=== PATIENT | female | born 1960 | race Caucasian/White ===

== ENCOUNTER 2020-04-21 01:04 | Emergency (ER) | payer BC ==
[2020-04-21] MEDS: HYDROmorphone 1 MG/ML Syringe IVPUSH ONE ×2 (01:30→03:10)
[2020-04-21] MEDS: Sodium Chloride 0.9% 1,000 ML IV SCH (01:30)
[2020-04-21 02:03] LABS: CHLORIDE,CL 106 mmol/L (98-107); SODIUM,NA 142 mmol/L (136-145)
[2020-04-21 02:04] LABS: ANION GAP 9.7 mmol/L (10-20)
[2020-04-21 02:09] LABS: PTT,PARTIAL THROMBOPLSTIN TIME 24.5 SEC (25.6-32.8)
--- NOTE | 2020-04-21 02:14 | EDM.PDOC ---
ED HPI GENERAL MEDICAL PROBLEM - General Chief Complaint: General Stated Complaint: Neck pain, back, chest pain Time Seen by Provider: 04/21/20 01:11 Source of Information: Reports: Patient, EMS, RN History Limitations: Reports: No Limitations - History of Present Illness INITIAL COMMENTS - FREE TEXT/NARRATIVE: Pt. presents to ER with complaints of acute onset pain across shoulders, anterior neck, and lower anterior chest pain. She states that the symptoms woke her from sleep. She states that the discomfort was severe enough that it caused her to fall. She was unable to get up due to discomfort. EMS was summoned. Pt. denies any syncope but was lightheaded. She was alert for the entire event. Denies any shortness of breath. No vomiting, but complains of nausea. Pt. denies any fever or chills. No hemoptysis. No recent illnesses. She was hemodynamically stable prior to arrival in ER. Pt. states that the discomfort is worse with movement and deep breathing. Denies any previous episodes of similar symptoms in the past that she is aware of . Pt. has a history of smoking in the past, quit 2 months ago. Pt. denies any history of DVT, PE or other clotting disorders. She is unaware of any history of this in her family. Denies hemoptysis. 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 shoulder blade bilateral Pain Score (Numeric/FACES): 10 - Related Data Allergies Allergy/AdvReac Type Severity Reaction Status Date / Time No Known Allergies Allergy Verified 04/21/20 01:57 Home Meds: Home Meds Aspirin [Halfprin] 1 tab PO DAILY 02/04/14 [History] Levothyroxine 1 tab PO DAILY 02/04/14 [History] Multivitamin [Multi Vitamin Daily] 1 tab PO DAILY 02/04/14 [History] atorvaSTATin [Lipitor] 1 tab PO DAILY 02/04/14 [History] Calcium Carbonate/Vitamin D3 [Calcium 500 + Vit D 200 Tablet] 2 tab PO DAILY 03/16/14 [History] Pantoprazole Sodium [Protonix] 40 mg PO DAILY 04/21/20 [History] traZODone HCl [Trazodone HCl] 50 mg PO BEDTIME 04/21/20 [History] ED ROS GENERAL - Review of Systems Review Of Systems: See Below Constitutional: Reports: No Symptoms. Denies: Fever, Chills, Weakness, Fatigue HEENT: Reports: No Symptoms Respiratory: Reports: Pleuritic Chest Pain Cardiovascular: Reports: Chest Pain Endocrine: Reports: No Symptoms GI/Abdominal: Reports: No Symptoms : Reports: No Symptoms Musculoskeletal: Reports: No Symptoms Skin: Reports: No Symptoms Neurological: Reports: No Symptoms Psychiatric: Reports: No Symptoms Hematologic/Lymphatic: Reports: No Symptoms Immunologic: Reports: No Symptoms ED EXAM, GENERAL - Physical Exam Exam: See Below Exam Limited By: No Limitations General Appearance: Alert, WD/WN, No Apparent Distress Throat/Mouth: Normal Inspection, Normal Lips, Normal Teeth, Normal Oropharynx, No Airway Compromise Head: Atraumatic, Normocephalic Neck: Normal Inspection, Supple, Non-Tender, Full Range of Motion Respiratory/Chest: No Respiratory Distress, Lungs Clear, Normal Breath Sounds, No Accessory Muscle Use, Other (chest tender to palpation/with movement) Cardiovascular: Normal Peripheral Pulses, Regular Rate, Rhythm, No Edema, No JVD Peripheral Pulses: 4+: Radial (L) GI/Abdominal: Soft, Non-Tender, No Distention, No Mass (Female) Exam: Deferred Rectal (Female) Exam: Deferred Back Exam: Normal Inspection, Full Range of Motion Extremities: Normal Inspection, Normal Range of Motion, Non-Tender, No Pedal Edema, Normal Capillary Refill Neurological: Alert, Oriented, CN II-XII Intact, Normal Cognition, Normal Reflexes, No Motor/Sensory Deficits Psychiatric: Anxious Skin Exam: Warm, Dry, Intact, Normal Color Lymphatic: No Adenopathy Course - Vital Signs Last Recorded V/S: Last Vital Signs Temp 36.6 C 04/21/20 01:04 Pulse 65 04/21/20 03:02 Resp 16 04/21/20 03:02 BP 111/48 L 04/21/20 03:02 Pulse Ox 96 04/21/20 01:50 - Orders/Labs/Meds Orders: Active Orders 24 hr Category Date Time Status EKG Documentation Completion [RC] STAT Care 04/21/20 01:22 Active Chest PE [Ang Chest] [CT] Stat Exams 04/21/20 02:30 Ordered Sodium Chloride 0.9% [Normal Saline] 1,000 ml Med 04/21/20 01:30 Active IV ASDIRECTED Medication Orders Sodium Chloride (Normal Saline) 1,000 mls @ 1,000 mls/hr IV ASDIRECTED CHRISTIANO Last Admin: 04/21/20 01:30 Dose: 1,000 mls/hr Documented by: ANTHONY Labs: Laboratory Tests 04/21/20 04/21/20 04/21/20 Range/Units 01:30 01:30 01:30 WBC 5.7 (4.0-10.0) x10^3/uL RBC 3.80 L (4.00-5.50) x10^6/uL Hgb 12.7 (12.0-16.0) g/dL Hct 37.5 (33.0-47.0) % MCV 98.7 H (78.0-93.0) fL MCH 33.4 H (26.0-32.0) pg MCHC 33.9 (32.0-36.0) g/dL RDW Coeff of Cherry 13.0 (10.0-15.0) % Plt Count 179 (130-400) x10^3/uL Neut % (Auto) 66.0 (50.0-80.0) % Lymph % (Auto) 22.5 L (25.0-50.0) % [place] % (Auto) 7.2 (2.0-11.0) % Eos % (Auto) 3.8 (0.0-4.0) % Baso % (Auto) 0.5 (0.2-1.2) % PT 10.6 (9.5-12.3) SEC INR 1.0 L (2.0-3.5) APTT (25.6-32.8) SEC D-Dimer, Quantitative (<=0.58) mg/LFEU Sodium 142 (136-145) mmol/L Potassium 3.7 (3.5-5.1) mmol/L Chloride 106 (98-107) mmol/L Carbon Dioxide 30 (21-32) mmol/L Anion Gap 9.7 L (10-20) mmol/L BUN 17 (7-18) mg/dL Creatinine 0.9 (0.55-1.02) mg/dL Est Cr Clr Drug Dosing 70.98 mL/min Estimated GFR (MDRD) > 60 Glucose 104 (74-106) mg/dL Calcium 8.4 L (8.5-10.1) mg/dL Corrected Calcium 8.88 (8.5-10.1) mg/dL Magnesium 1.9 (1.8-2.4) mg/dL Total Bilirubin 0.8 (0.2-1.0) mg/dL AST 12 L (15-37) U/L ALT 22 (14-59) U/L Alkaline Phosphatase 66 (46-116) U/L Troponin I < 0.017 (<=0.056) ng/mL C-Reactive Protein 0.3 (<=0.9) mg/dL Total Protein 6.3 L (6.4-8.2) g/dL Albumin 3.4 (3.4-5.0) g/dL Globulin 2.9 Albumin/Globulin Ratio 1.17 Amylase 69 (25-115) U/L Lipase 152 (73-393) U/L 04/21/20 Range/Units 01:30 WBC (4.0-10.0) x10^3/uL RBC (4.00-5.50) x10^6/uL Hgb (12.0-16.0) g/dL Hct (33.0-47.0) % MCV (78.0-93.0) fL MCH (26.0-32.0) pg MCHC (32.0-36.0) g/dL RDW Coeff of Cherry (10.0-15.0) % Plt Count (130-400) x10^3/uL Neut % (Auto) (50.0-80.0) % Lymph % (Auto) (25.0-50.0) % [place] % (Auto) (2.0-11.0) % Eos % (Auto) (0.0-4.0) % Baso % (Auto) (0.2-1.2) % PT (9.5-12.3) SEC INR (2.0-3.5) APTT 24.5 L (25.6-32.8) SEC D-Dimer, Quantitative 33.27 H (<=0.58) mg/LFEU Sodium (136-145) mmol/L Potassium (3.5-5.1) mmol/L Chloride (98-107) mmol/L Carbon Dioxide (21-32) mmol/L Anion Gap (10-20) mmol/L BUN (7-18) mg/dL Creatinine (0.55-1.02) mg/dL Est Cr Clr Drug Dosing mL/min Estimated GFR (MDRD) Glucose (74-106) mg/dL Calcium (8.5-10.1) mg/dL Corrected Calcium (8.5-10.1) mg/dL Magnesium (1.8-2.4) mg/dL Total Bilirubin (0.2-1.0) mg/dL AST (15-37) U/L ALT (14-59) U/L Alkaline Phosphatase (46-116) U/L Troponin I (<=0.056) ng/mL C-Reactive Protein (<=0.9) mg/dL Total Protein (6.4-8.2) g/dL Albumin (3.4-5.0) g/dL Globulin Albumin/Globulin Ratio Amylase (25-115) U/L Lipase (73-393) U/L Meds: Medications Generic Name Dose Route Start Last Admin Trade Name Freq PRN Reason Stop Dose Admin Sodium Chloride 1,000 mls @ 1,000 mls/hr 04/21/20 01:30 04/21/20 01:30 Normal Saline IV 1,000 mls/hr ASDIRECTED CHRISTIANO Administration Discontinued Medications Generic Name Dose Route Start Last Admin Trade Name Freq PRN Reason Stop Dose Admin Diazepam 2.5 mg 04/21/20 01:40 04/21/20 01:44 Valium IVPUSH 04/21/20 01:41 2.5 mg STAT ONE Administration Hydromorphone HCl 1 mg 04/21/20 01:23 04/21/20 01:30 Dilaudid IVPUSH 04/21/20 01:24 1 mg ONETIME ONE Administration Hydromorphone HCl 1 mg 04/21/20 03:03 04/21/20 03:10 Dilaudid IVPUSH 04/21/20 03:04 1 mg ONETIME ONE Administration Iopamidol 100 ml 04/21/20 03:17 04/21/20 03:18 Isovue-300 (61%) IVPUSH 04/21/20 03:18 100 ml ONETIME ONE Administration Metoclopramide HCl 5 mg 04/21/20 02:21 04/21/20 02:25 Reglan IVPUSH 04/21/20 02:22 5 mg ONETIME ONE Administration - Radiology Interpretation Free Text/Narrative:: Thoracic/abdominal aortic aneurysm. Please see attached report. Departure - Departure Time of Disposition: 03:58 Disposition: Home, Self-Care 01 Clinical Impression: Thoracic aortic aneurysm - Discharge Information Referrals: PCP,Unobtain [Primary Care Provider] - Forms: ED Department Discharge, Interfacility Transfer EMTALA Sepsis Event Note (ED) - Evaluation Sepsis Screening Result: No Definite Risk - Focused Exam Vital Signs: Vital Signs Temp Pulse Resp BP Pulse Ox 04/21/20 03:02 65 16 111/48 L 04/21/20 01:50 64 16 106/49 L 96 04/21/20 01:04 36.6 C 62 16 116/49 L 100 - Problem List Review Problem List Initiated/Reviewed/Updated: Yes - My Orders Last 24 Hours: My Active Orders 04/21/20 01:22 EKG Documentation Completion [RC] STAT 04/21/20 01:30 Sodium Chloride 0.9% [Normal Saline] 1,000 ml IV ASDIRECTED 04/21/20 02:30 Chest PE [Ang Chest] [CT] Stat - Assessment/Plan Last 24 Hours: My Active Orders 04/21/20 01:22 EKG Documentation Completion [RC] STAT 04/21/20 01:30 Sodium Chloride 0.9% [Normal Saline] 1,000 ml IV ASDIRECTED 04/21/20 02:30 Chest PE [Ang Chest] [CT] Stat Plan: Pt. will be transported via [facility] ground ambulance to [facility]. Dr. Avila is accepting. Pt. is a code 1.
[2020-04-21] MEDS: Metoclopramide 10 MG/2 ML SDV IVPUSH ONE (02:25)
[2020-04-21] MEDS: Iopamidol 612 MG/ML 100 ML Bottle IVPUSH ONE (03:18)
--- NOTE | 2020-04-24 08:04 | CT ---
[id number] CT/CTA Chest EXAM: CT ANGIOGRAM CHEST INDICATION: ELEVATED D DIMER; CHEST PAIN COMPARISON: None. DISCUSSION: There is a large type A intramural hematoma or thrombosed dissection beginning at the aortic valve and abutting both coronary artery origins, extending into the right brachiocephalic and carotid arteries and the celiac axis. This process extends past the level of the renal arteries, but is included in the [id number] of this study. The SMA and renal arteries cross the process, but are not definitely involved. Negative for pulmonary embolism. Mild bilateral dependent groundglass opacities, favor atelectasis over atypical infection or inflammatory process. Indeterminate 9 x 4 mm nodular opacity in the right lower lobe (image 110 series 4). A 6 month follow-up examination is suggested. No pleural or pericardial effusion. Normal heart size. No mediastinal, hilar or axillary lymphadenopathy. Moderate to large hiatus hernia. Small left adrenal nodule. IMPRESSION: 1. Type A intramural hematoma versus thrombosed dissection of the aorta beginning at the aortic valve and extending past the level of the renal arteries with the distal extent excluded from the [id number] of this study. The process extends into the right brachiocephalic and carotid arteries. 2. Mild nonspecific groundglass opacities in the lower lobes, atelectasis versus atypical infection/inflammation. Timothy Rodrigues MD 04/24/20 0804 Thank you for allowing us to participate in the care of your patient.
== END 2020-04-21 04:05 | disposition home or self-care (01) ==
LOC: VM.ED 01:04
DX: I71.2 Thoracic aortic aneurysm, without rupture (principal); Z79.82 Long term (current) use of aspirin; Z79.899 Other long term (current) drug therapy
CPT/HCPCS: 36415; 71275; 80053; 82150; 83690; 83735; 84484; 85025; 85379; 85610; 85730; 86140; 93005; 96374; 96375; 96376; 99285; J1170; J2765; J3360; J7030; Q9967; 99284

== ENCOUNTER 2020-04-29 19:24 | Emergency (ER) | payer BC ==
[2020-04-29] MEDS ORDERED: Sodium Chloride 0.9% 10 ML Syringe FLUSH PRN (19:42)
[2020-04-29] MEDS ORDERED: HYDROmorphone 1 MG/ML Syringe IVPUSH ONE ×2 (19:44→21:40)
--- NOTE | 2020-04-29 19:55 | EDM.PDOC ---
ED HPI GENERAL MEDICAL PROBLEM - General Time Seen by Provider: 04/29/20 19:35 Source of Information: Reports: Patient History Limitations: Reports: No Limitations - History of Present Illness INITIAL COMMENTS - FREE TEXT/NARRATIVE: This patient presents to ER with complaints of abdominal pain since Friday. She underwent repair of type A aortic dissection with cardiopulmonary bypass with circulatory arrest. She was initially diagnosed here and transferred to [facility] for emergent surgery. Pt. states that she got out of the hospital this past Friday. She states that she has been having pain since time of discharge. States that she has been passing gas. She is prescribed [place] 5/325mg 1 every 6 hours which she states does not help. She states that she has been intermittently chilled. She feels weak and fatigued. She states that she has not been in contact with her surgeon since she was discharged. She feels she was not ready to be discharged. Denies any bloody stools. She states that she has been intermittently diaphoretic since before she was discharged. Onset: Today Onset Date: 04/29/20 Location: Reports: Abdomen upper abdomen Pain Score (Numeric/FACES): 6 - Related Data Allergies Allergy/AdvReac Type Severity Reaction Status Date / Time No Known Allergies Allergy Verified 04/29/20 19:54 Home Meds: Home Meds Aspirin [Halfprin] 1 tab PO DAILY 02/04/14 [History] Levothyroxine 137 mcg PO DAILY 02/04/14 [History] Multivitamin [Multi Vitamin Daily] 1 tab PO DAILY 02/04/14 [History] atorvaSTATin [Lipitor] 20 mg PO DAILY 02/04/14 [History] Calcium Carbonate/Vitamin D3 [Calcium 500 + Vit D 200 Tablet] 2 tab PO DAILY 03/16/14 [History] Pantoprazole Sodium [Protonix] 40 mg PO DAILY 04/21/20 [History] traZODone HCl [Trazodone HCl] 50 mg PO BEDTIME 04/21/20 [History] Cyclobenzaprine [Flexeril] 5 mg PO TID PRN 04/30/20 [History] Hydrocodone/Acetaminophen [Hydrocodone-Acetamin 5-325 mg] 1 tab PO Q6H PRN 04/30/20 [History] Metoprolol Tartrate 25 mg PO DAILY 04/30/20 [History] lisinopriL [Lisinopril] 5 mg PO DAILY 04/30/20 [History] Past Medical History HEENT History: Reports: Hard of Hearing Cardiovascular History: Reports: High Cholesterol Gastrointestinal History: Reports: GERD 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: Neurological History: Reports: Other (See Below) Other Neuro History: Insomnia Endocrine/Metabolic History: Reports: Hypothyroidism - Past Surgical History Female Surgical History: Reports: Section, Hysterectomy ED ROS GENERAL - Review of Systems Review Of Systems: See Below Constitutional: Reports: No Symptoms HEENT: Reports: No Symptoms Respiratory: Reports: No Symptoms Cardiovascular: Reports: No Symptoms Endocrine: Reports: No Symptoms GI/Abdominal: Reports: Abdominal Pain : Reports: No Symptoms Musculoskeletal: Reports: No Symptoms Skin: Reports: No Symptoms Neurological: Reports: No Symptoms Psychiatric: Reports: No Symptoms Hematologic/Lymphatic: Reports: No Symptoms Immunologic: Reports: No Symptoms ED EXAM, GENERAL - Physical Exam Exam: See Below Exam Limited By: No Limitations General Appearance: Alert, WD/WN, No Apparent Distress Throat/Mouth: Normal Inspection, Normal Lips, Normal Teeth, Normal Gums, Normal Oropharynx, No Airway Compromise Head: Atraumatic, Normocephalic Neck: Normal Inspection, Supple, Non-Tender, Full Range of Motion Respiratory/Chest: No Respiratory Distress, Lungs Clear, Normal Breath Sounds, No Accessory Muscle Use, Other (anterior chest pain along incision) Cardiovascular: Normal Peripheral Pulses, Regular Rate, Rhythm, No Edema, No Gallop, No JVD Peripheral Pulses: 4+: Radial (R), Posterior Tibial (L), Posterior Tibial (R), Dorsalis Pedis (L), Dorsalis Pedis (R) GI/Abdominal: Soft, Non-Tender, No Distention, No Mass (Female) Exam: Deferred Rectal (Female) Exam: Deferred Back Exam: Normal Inspection, Full Range of Motion Extremities: Normal Inspection, Normal Range of Motion, Non-Tender, No Pedal Edema, Normal Capillary Refill Neurological: Alert, Oriented, CN II-XII Intact, Normal Cognition, Normal Gait, Normal Reflexes, No Motor/Sensory Deficits Psychiatric: Normal Affect, Normal Mood Skin Exam: Warm, Dry, Intact, No Rash, Pallor Lymphatic: No Adenopathy Course - Vital Signs Last Recorded V/S: Last Vital Signs Temp 36.2 C 04/29/20 19:24 Pulse 98 04/29/20 20:45 Resp 16 04/29/20 20:45 BP 119/72 04/29/20 20:45 Pulse Ox 97 04/29/20 20:45 - Orders/Labs/Meds Orders: Active Orders 24 hr Category Date Time Status Peripheral IV Insertion Adult [OM.PC] Routine Oth 04/29/20 19:42 Ordered Labs: Laboratory Tests 04/29/20 04/29/20 04/29/20 Range/Units 19:50 19:50 19:50 WBC 14.2 H (4.0-10.0) x10^3/uL RBC 3.40 L (4.00-5.50) x10^6/uL Hgb 10.6 L D (12.0-16.0) g/dL Hct 31.2 L (33.0-47.0) % MCV 91.8 D (78.0-93.0) fL MCH 31.2 (26.0-32.0) pg MCHC 34.0 (32.0-36.0) g/dL RDW Coeff of Cherry 14.5 (10.0-15.0) % Plt Count 500 H D (130-400) x10^3/uL Neut % (Auto) 82.2 H (50.0-80.0) % Lymph % (Auto) 7.9 L (25.0-50.0) % [place] % (Auto) 8.1 (2.0-11.0) % Eos % (Auto) 1.4 (0.0-4.0) % Baso % (Auto) 0.4 (0.2-1.2) % PT 11.0 (9.5-12.3) SEC INR 1.0 L (2.0-3.5) APTT 26.6 (25.6-32.8) SEC Sodium 132 L D (136-145) mmol/L Potassium 3.5 (3.5-5.1) mmol/L Chloride 95 L (98-107) mmol/L Carbon Dioxide 23 (21-32) mmol/L Anion Gap 17.5 (10-20) mmol/L BUN 10 (7-18) mg/dL Creatinine 0.6 (0.55-1.02) mg/dL Est Cr Clr Drug Dosing TNP Estimated GFR (MDRD) > 60 Glucose 131 H (74-106) mg/dL Calcium 9.1 (8.5-10.1) mg/dL Corrected Calcium 10.14 H (8.5-10.1) mg/dL Magnesium 1.7 L (1.8-2.4) mg/dL Total Bilirubin 1.6 H (0.2-1.0) mg/dL AST 113 H (15-37) U/L ALT 76 H (14-59) U/L Alkaline Phosphatase 362 H (46-116) U/L Troponin I 0.021 (<=0.056) ng/mL C-Reactive Protein 55.9 H (<=0.9) mg/dL Total Protein 7.1 (6.4-8.2) g/dL Albumin 2.7 L (3.4-5.0) g/dL Globulin 4.4 Albumin/Globulin Ratio 0.61 Amylase 41 (25-115) U/L Lipase 111 (73-393) U/L Urine Color (YELLOW) Urine Appearance (CLEAR) Urine pH (5.0-8.0) Ur Specific [place] Urine Protein (NEGATIVE) mg/dL Urine Glucose (UA) (NEGATIVE) mg/dL Urine Ketones (NEGATIVE) mg/dL Urine Occult Blood (NEGATIVE) Urine Nitrite (NEGATIVE) Urine Bilirubin (NEGATIVE) Urine Urobilinogen (0.2) EU/dL Ur Leukocyte Esterase (NEGATIVE) Urine RBC (NOT SEEN) /HPF Urine WBC (NOT SEEN) /HPF Ur Squamous Epith Cells (NEGATIVE) /HPF Amorphous Sediment Urine Bacteria (NEGATIVE) /HPF Urine Mucus (NEGATIVE) /LPF 04/29/20 Range/Units 20:35 WBC (4.0-10.0) x10^3/uL RBC (4.00-5.50) x10^6/uL Hgb (12.0-16.0) g/dL Hct (33.0-47.0) % MCV (78.0-93.0) fL MCH (26.0-32.0) pg MCHC (32.0-36.0) g/dL RDW Coeff of Cherry (10.0-15.0) % Plt Count (130-400) x10^3/uL Neut % (Auto) (50.0-80.0) % Lymph % (Auto) (25.0-50.0) % [place] % (Auto) (2.0-11.0) % Eos % (Auto) (0.0-4.0) % Baso % (Auto) (0.2-1.2) % PT (9.5-12.3) SEC INR (2.0-3.5) APTT (25.6-32.8) SEC Sodium (136-145) mmol/L Potassium (3.5-5.1) mmol/L Chloride (98-107) mmol/L Carbon Dioxide (21-32) mmol/L Anion Gap (10-20) mmol/L BUN (7-18) mg/dL Creatinine (0.55-1.02) mg/dL Est Cr Clr Drug Dosing Estimated GFR (MDRD) Glucose (74-106) mg/dL Calcium (8.5-10.1) mg/dL Corrected Calcium (8.5-10.1) mg/dL Magnesium (1.8-2.4) mg/dL Total Bilirubin (0.2-1.0) mg/dL AST (15-37) U/L ALT (14-59) U/L Alkaline Phosphatase (46-116) U/L Troponin I (<=0.056) ng/mL C-Reactive Protein (<=0.9) mg/dL Total Protein (6.4-8.2) g/dL Albumin (3.4-5.0) g/dL Globulin Albumin/Globulin Ratio Amylase (25-115) U/L Lipase (73-393) U/L Urine Color [place] H (YELLOW) Urine Appearance Slightly cloudy H (CLEAR) Urine pH 8.5 H (5.0-8.0) Ur Specific [place] 1.015 Urine Protein Trace H (NEGATIVE) mg/dL Urine Glucose (UA) Negative (NEGATIVE) mg/dL Urine Ketones 15 H (NEGATIVE) mg/dL Urine Occult Blood Small H (NEGATIVE) Urine Nitrite Negative (NEGATIVE) Urine Bilirubin Moderate H (NEGATIVE) Urine Urobilinogen 2.0 H (0.2) EU/dL Ur Leukocyte Esterase Negative (NEGATIVE) Urine RBC 5-10 H (NOT SEEN) /HPF Urine WBC 0-5 (NOT SEEN) /HPF Ur Squamous Epith Cells Rare (NEGATIVE) /HPF Amorphous Sediment Few Urine Bacteria Rare (NEGATIVE) /HPF Urine Mucus Rare H (NEGATIVE) /LPF Meds: Medications Discontinued Medications Generic Name Dose Route Start Last Admin Trade Name Kaitlin PRN Reason Stop Dose Admin Hydrocodone Bitart/Acetaminophen 1 packet 04/29/20 21:40 Take Home: Acetam/Hydrocodon 325-5 Mg, 5 Pack PO 04/29/20 21:41 ONETIME ONE Hydromorphone HCl 1 mg 04/29/20 19:44 04/29/20 19:52 Dilaudid IVPUSH 04/29/20 19:45 1 mg ONETIME ONE Administration Hydromorphone HCl 1 mg 04/29/20 21:40 04/29/20 21:45 Dilaudid IVPUSH 04/29/20 21:41 1 mg ONETIME ONE Administration Iopamidol 100 ml 04/29/20 19:59 04/29/20 20:49 Isovue-300 (61%) IVPUSH 04/29/20 20:00 100 ml ONETIME ONE Administration Sodium Chloride 10 ml 04/29/20 19:42 Saline Flush FLUSH ASDIRECTED PRN Keep Vein Open - Radiology Interpretation Free Text/Narrative:: Please see attached report. Departure - Departure Time of Disposition: 22:10 Disposition: Home, Self-Care 01 Clinical Impression: Postoperative abdominal pain - Discharge Information Instructions: Abdominal Aortic Aneurysm, [id number] Referrals: Kalpana Boo PA-C [Primary Care Provider] - Forms: ED Department Discharge Additional Instructions: I spoke with Dr. Gonzalez, the surgeon application support manager at [facility]. She does not feel the the cause of the discomfort is due to your aorta. Your gallbladder in enlarged, and at some point after you have recovered from this illness will need to be addressed. We are going to increase your oxycodone dose. For now, take 2 5/325mg tablets every 4 hours as needed for pain I am sending home a script for percocet 10/325mg mg with instructions to take 1 every 4 hours as needed for pain. Start miralax 17gm (1 capful) of powder with a large glass or water each day. If you are having continued discomfort, fever, chills, nausea, vomiting, etc. return to ER or go to the ER at [facility]. Follow-up in clinic on Friday. - Problem List Review Problem List Initiated/Reviewed/Updated: Yes - My Orders Last 24 Hours: My Active Orders 04/29/20 19:42 Peripheral IV Insertion Adult [OM.PC] Routine - Assessment/Plan Last 24 Hours: My Active Orders 04/29/20 19:42 Peripheral IV Insertion Adult [OM.PC] Routine Plan: Discussed findings with thoracic surgery at [facility], Dr. Gonzalez. She felt that the pain was not due new aneurysm. Pt. was noted to have enlarged gallbladder without evidence of cholangitis. There was not obvious evidence of mesenteric infact on CT. No evidence of bowel obstruction, ruptured viscus. Likely cause of discomfort was due to inadequate post of pain control, as she has been having this discomfort since she was discharge last Friday. Advised watchful waiting at this time. She was given IV dilaudid in ER which she states helped with pain. Pt. oxycodone was increased to 10mg every 4 hours. Also advised starting miralax, as these medications are constipating. Return to ER if having worsening discomfort, fever, chills, or lightheadedness. Drink plenty of fluids.
[2020-04-29] MEDS ORDERED: Iopamidol 612 MG/ML 100 ML Bottle IVPUSH ONE (19:59)
[2020-04-29 20:12] LABS: PTT,PARTIAL THROMBOPLSTIN TIME 26.6 SEC (25.6-32.8)
[2020-04-29 20:20] LABS: CHLORIDE,CL 95 mmol/L (98-107); SODIUM,NA 132 mmol/L (136-145)
[2020-04-29 20:21] LABS: ANION GAP 17.5 mmol/L (10-20)
[2020-04-29] MEDS ORDERED: Take Home: Acetaminophen/HYDROcodone 325-5 MG, 5 Tab Pack PO ONE (21:40)
--- NOTE | 2020-04-30 08:51 | CT ---
[id number] CT/CT Chest Abdomen Pelvis W IV EXAM: CT Chest Abdomen Pelvis W IV CLINICAL DATA: CHEST/ABD PAIN, RECENT THORACIC ABD ANEURYSM COMPARISON STUDY: April 21, 2020. FINDINGS: Repair of previously seen thoracic aortic dissection seen on examination from April 21, 2020. There are changes of median sternotomy and graft placement. Graft appears radiographically intact. Periaortic hematoma has increased in size. Increased fluid in the mediastinum as well. Findings are most likely sequela of recent repair. There is hyperdense material in the false lumen of the dissection extending from the ascending segment of the thoracic aorta into the arch and descending segment. Hyperdense material also extends into the false lumens of the bilateral carotid arteries. This hyperdense material is possibly retained contrast from prior examination. No definitive evidence of leakage at either anastomosis site. However this is possible. False lumen is larger than the true lumen in both carotid arteries. Small bilateral pleural effusions and atelectasis left greater than right. Hiatus hernia, similar to the prior examination as well. Abdomen and pelvis: Dissection extends into the thoracic aorta to near the aortic bifurcation. Sac does not appear to involve ostia of the major branch vessels of the aorta, including the renal arteries. No evidence of bowel or organ ischemia. No evidence of retroperitoneal hematoma. Bones and soft tissues: Median sternotomy since the prior examination. Small areas of AVN in both femoral heads. No subchondral collapse. Spondylosis. No acute findings. IMPRESSION: Changes of thoracic aorta dissection repair. Graft appears intact. Increased fluid within the mediastinum, including the para-aortic soft tissues and pericardial region. Findings are most consistent with sequela of recent surgery. Findings are described in detail above. Bong Yoder MD 04/30/20 0849 Thank you for allowing us to participate in the care of your patient.
== END 2020-04-29 22:10 | disposition home or self-care (01) ==
LOC: VM.ED 19:24
DX: G89.18 Other acute postprocedural pain (principal); R10.10 Upper abdominal pain, unspecified; E78.00 Pure hypercholesterolemia, unspecified; K21.9 Gastro-esophageal reflux disease without esophagitis; E03.9 Hypothyroidism, unspecified; Z79.899 Other long term (current) drug therapy
CPT/HCPCS: 71260; 74177; 80053; 81001; 82150; 83690; 83735; 84484; 85025; 85610; 85730; 86140; 93005; 96374; 96376; 99284; J1170; Q9967; 99283

== ENCOUNTER 2020-05-14 21:40 | Emergency (ER) | payer BC ==
[~2020-05-14 21:40] MED LIST: Sodium Chloride 0.9% 10 ML Syringe FLUSH PRN
[2020-05-14] MEDS: EPINEPHrine 1 MG/1 ML Amp ONE (21:52)
[2020-05-14] MEDS: EPINEPHrine 1 MG/ML SDV IM ONE (21:53)
[2020-05-14] MEDS: methylPREDNISolone Sodium Succinate 125 MG/2 ML SDV IV ONE (21:54)
[2020-05-14] MEDS: diphenhydrAMINE 50 MG/ML SDV IVPUSH ONE (21:54)
[2020-05-14] MEDS: Famotidine 20 MG Tab PO ONE (22:00)
[2020-05-14] MEDS: HYDROmorphone 1 MG/ML Syringe IVPUSH ONE (22:37)
[2020-05-14] MEDS: LORazepam 2 MG/ML SDV IVPUSH ONE (22:43)
--- NOTE | 2020-05-15 02:18 | EDM.PDOC ---
ED HPI GENERAL MEDICAL PROBLEM - General Stated Complaint: SWOLLEN TONGUE , AND THROAT Time Seen by Provider: 05/14/20 21:40 Source of Information: Reports: Patient, Family History Limitations: Reports: No Limitations - History of Present Illness INITIAL COMMENTS - FREE TEXT/NARRATIVE: Pt. presents to ER with complaints of swelling to the tongue. Pt. states that the symptoms started this evening and the sensation woke her from sleep. Denies any rashes. No sore throat, wheezing or chest tightness. Pt. 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 The aortic repair was an open procedure, and she has been having lots of problems with abdominal and back pain since the event. She was also seen in the ER on approx. 04/29 for continued abdominal pain, and had a repeat CT of the chest, abd. and pelvis which was negative to acute dissection. She had a HIDA scan and thus the gallbladder was removed. She has also had angiography of her R lower extremity due to the leg "giving out" and paresthesia thought to be caused by femoral catheterization during her TAA. Pt. denies consuming any new foods. 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 She denies any fever or chills. No substernal chest discomfort. Onset: Today Onset Date: 05/14/20 Location: Reports: Face, Other - Related Data Allergies Allergy/AdvReac Type Severity Reaction Status Date / Time No Known Allergies Allergy Verified 04/29/20 19:54 Home Meds: Home Meds Aspirin [Halfprin] 1 tab PO DAILY 02/04/14 [History] Levothyroxine 137 mcg PO DAILY 02/04/14 [History] Multivitamin [Multi Vitamin Daily] 1 tab PO DAILY 02/04/14 [History] atorvaSTATin [Lipitor] 20 mg PO DAILY 02/04/14 [History] Calcium Carbonate/Vitamin D3 [Calcium 500 + Vit D 200 Tablet] 2 tab PO DAILY 03/16/14 [History] Pantoprazole Sodium [Protonix] 40 mg PO DAILY 04/21/20 [History] traZODone HCl [Trazodone HCl] 50 mg PO BEDTIME 04/21/20 [History] Cyclobenzaprine [Flexeril] 5 mg PO TID PRN 04/30/20 [History] Hydrocodone/Acetaminophen [Hydrocodone-Acetamin 5-325 mg] 1 tab PO Q6H PRN 04/30/20 [History] Metoprolol Tartrate 25 mg PO DAILY 04/30/20 [History] lisinopriL [Lisinopril] 5 mg PO DAILY 04/30/20 [History] Past Medical History HEENT History: Reports: Hard of Hearing Cardiovascular History: Reports: High Cholesterol Gastrointestinal History: Reports: GERD [employer] History: Reports: Neurological History: Reports: Other (See Below) Other Neuro History: Insomnia Endocrine/Metabolic History: Reports: Hypothyroidism - Past Surgical History Female Surgical History: Reports: Section, Hysterectomy ED ROS GENERAL - Review of Systems Review Of Systems: See Below Constitutional: Reports: No Symptoms HEENT: Reports: Other (swelling to tongue) Respiratory: Reports: No Symptoms Cardiovascular: Reports: No Symptoms Endocrine: Reports: No Symptoms GI/Abdominal: Reports: No Symptoms : Reports: No Symptoms Musculoskeletal: Reports: No Symptoms Skin: Reports: No Symptoms Neurological: Reports: No Symptoms Psychiatric: Reports: No Symptoms Hematologic/Lymphatic: Reports: No Symptoms Immunologic: Reports: Other (see HPI) ED EXAM, GENERAL - Physical Exam Exam: See Below Exam Limited By: No Limitations General Appearance: Alert, WD/WN, No Apparent Distress Eye Exam: Bilateral Eye: EOMI, PERRL Throat/Mouth: Other (Edema to tip of tongue, L greater than R but edema is actually quite minimal. No swelling to the lips. No stridor. No edema to hypopharynx. ) Head: Atraumatic, Normocephalic Neck: Normal Inspection, Supple, Non-Tender, Full Range of Motion Respiratory/Chest: No Respiratory Distress, Lungs Clear, Normal Breath Sounds, No Accessory Muscle Use, Chest Non-Tender Cardiovascular: Normal Peripheral Pulses, Regular Rate, Rhythm, No Edema, No JVD, No Murmur Peripheral Pulses: 4+: Radial (L) GI/Abdominal: Soft, Non-Tender, No Distention, No Mass (Female) Exam: Deferred Rectal (Female) Exam: Deferred Back Exam: Normal Inspection, Full Range of Motion Extremities: Normal Inspection, Normal Range of Motion Neurological: Alert, Oriented, CN II-XII Intact, Normal Cognition, Normal Gait, Normal Reflexes, No Motor/Sensory Deficits Psychiatric: Normal Affect, Normal Mood Skin Exam: Warm, Dry, Intact, Normal Color, No Rash Lymphatic: No Adenopathy Course - Orders/Labs/Meds Orders: Active Orders 24 hr Category Date Time Status Sodium Chloride 0.9% [Saline Flush] Med 05/14/20 21:40 Active 10 ml FLUSH ASDIRECTED PRN Peripheral IV Insertion Adult [OM.PC] Routine Oth 05/14/20 21:41 Ordered Medication Orders Sodium Chloride (Saline Flush) 10 ml FLUSH ASDIRECTED PRN PRN Reason: Keep Vein Open Meds: Medications Generic Name Dose Route Start Last Admin Trade Name Freq PRN Reason Stop Dose Admin Sodium Chloride 10 ml 05/14/20 21:40 Saline Flush FLUSH ASDIRECTED PRN Keep Vein Open Discontinued Medications Generic Name Dose Route Start Last Admin Trade Name Freq PRN Reason Stop Dose Admin Diphenhydramine HCl 50 mg 05/14/20 21:41 05/14/20 21:54 Benadryl IVPUSH 05/14/20 21:42 50 mg ONETIME ONE Administration Epinephrine HCl 0.5 mg 05/14/20 21:40 05/14/20 21:53 Adrenalin IM 05/14/20 21:41 Not Given ONETIME ONE Epinephrine HCl Confirm 05/14/20 21:56 05/14/20 21:52 Adrenalin Administered 05/14/20 21:57 0.3 mg Dose Administration 1 mg .ROUTE .STK-MED ONE Famotidine 20 mg 05/14/20 21:41 05/14/20 22:00 Pepcid PO 05/14/20 21:42 20 mg ONETIME ONE Administration Hydromorphone HCl 1 mg 05/14/20 22:24 05/14/20 22:37 Dilaudid IVPUSH 05/14/20 22:25 1 mg ONETIME ONE Administration Lorazepam 1 mg 05/14/20 22:24 05/14/20 22:43 Ativan IVPUSH 05/14/20 22:25 Not Given STAT ONE Methylprednisolone Sodium Succinate 125 mg 05/14/20 21:41 05/14/20 21:54 Solu-Medrol IV 05/14/20 21:42 125 mg ONETIME ONE Administration - Re-Assessments/Exams Free Text/Narrative Re-Assessment/Exam: Pt. was given epinephrine 0.3mg IM, benadryl 50mg IV, and solu medrol 125mg IV. She was observed for a period of time and reported feeling much improved. Denied any increase in size to her tongue, in fact she thinks it may have improved somewhat. She was given dilaudid 1 mg IV for her chronic back discomfort (she had not taken her oral medication for several hours). Departure - Departure Time of Disposition: 23:00 Disposition: Home, Self-Care 01 Clinical Impression: Angioedema due to angiotensin converting enzyme inhibitor (SHAKEEL-I) - Discharge Information Instructions: Allergies, Adult, [id number] Referrals: Kalpana Boo PA-C [Primary Care Provider] - Additional Instructions: Stop the lisinopril. This is the likely culprit to your reaction. Contact your surgeon to see what medication they want to start you on for your blood pressure Prednisone 20mg 2 tabs daily for 6 days Benadryl (diphenhydramine over the counter) 50mg every 6 hours for itching, swelling It may take several days for the swelling to go down fully, but return to ER if the swelling is getting worse, if you have troubles breathing, etc. I am giving you a prescription for epi pen to take if you are having a severe reaction with trouble breathing and can't get to the ER. - My Orders Last 24 Hours: My Active Orders 05/14/20 21:40 Sodium Chloride 0.9% [Saline Flush] 10 ml FLUSH ASDIRECTED PRN 05/14/20 21:41 Peripheral IV Insertion Adult [OM.PC] Routine - Assessment/Plan Last 24 Hours: My Active Orders 05/14/20 21:40 Sodium Chloride 0.9% [Saline Flush] 10 ml FLUSH ASDIRECTED PRN 05/14/20 21:41 Peripheral IV Insertion Adult [OM.PC] Routine
== END 2020-05-14 23:38 | disposition home or self-care (01) ==
LOC: VM.ED 21:40
DX: T78.3XXA Angioneurotic edema, initial encounter (principal); T46.4X5A Adverse effect of angiotensin-converting-enzyme inhibitors, initial encounter; E78.00 Pure hypercholesterolemia, unspecified; K21.9 Gastro-esophageal reflux disease without esophagitis; E03.9 Hypothyroidism, unspecified; Z79.899 Other long term (current) drug therapy; Z79.82 Long term (current) use of aspirin
CPT/HCPCS: 96372; 96374; 96375; 99284; 99284-25; A9270-GY; J0171; J1170; J1200; J2930

== ENCOUNTER 2020-06-16 11:57 | Inpatient (IN) | payer BC ==
[2020-06-16] MEDS ORDERED: Labetalol 20 MG/4 ML Syringe IVPUSH ONE ×2 (12:22→13:04)
[2020-06-16 12:59] LABS: CHLORIDE,CL 99 mmol/L (98-107); SODIUM,NA 136 mmol/L (136-145)
[2020-06-16 13:00] LABS: ANION GAP 13.2 mmol/L (5-15)
[2020-06-16] MEDS ORDERED: LORazepam 1 MG Tab PO ONE (13:06)
--- NOTE | 2020-06-16 13:34 | CR ---
[id number] RAD/RAD Chest PA or AP 1V EXAM: SINGLE VIEW CHEST. INDICATION: HISTORY OF DISSECTION OF THORACIC AORTA COMPARISON: CORRELATION IS MADE WITH THE CAT SCAN OF APRIL 29, 2020 FINDINGS: Dilatation of the thoracic aorta is stable The lungs are clear Surgical changes are identified IMPRESSION: NO OBVIOUS NEW PLAIN FILM ABNORMALITY Kyle Real MD 06/16/20 [id number] Thank you for allowing us to participate in the care of your patient.
[2020-06-16] MEDS ORDERED: hydrALAZINE 20 MG/ML SDV IVPUSH ONE ×2 (13:37→14:57)
[2020-06-16] MEDS ORDERED: hydrALAZINE 10 MG Tab PO STA (13:58)
[2020-06-16] MEDS ORDERED: Acetaminophen 500 MG Tab PO ONE (14:39)
--- NOTE | 2020-06-16 14:42 | EDM.PDOC ---
ED HPI GENERAL MEDICAL PROBLEM - General Chief Complaint: Cardiovascular Problem Stated Complaint: HIGH BLOOD PRESSURE Time Seen by Provider: 06/16/20 12:00 Source of Information: Reports: Patient History Limitations: Reports: No Limitations - History of Present Illness INITIAL COMMENTS - FREE TEXT/NARRATIVE: This patient is sent to the emergency department today from the primary care clinic with concerns of hypertensive to see. This patient was seen in the clinic today to establish care with Dr. Sandoval for her long-term management of her hypertension as well as aortic dissection. This patient was found in April to have an ascending aortic dissection that she had repaired at [facility] in [place] by Dr. Avila. Over the past couple of weeks she has had increasing dosages of her metoprolol 200 mg twice a day as well as amlodipine to 10 mg a day and her blood pressure continues to go up at home. She was establishing care in the clinic today when she was noted to have a systolic blood pressure of approximately 210/120. They were quite concerned with this high blood pressure in the recent aortic dissection and she was sent to the emergency department. Cardiothoracic surgery has been contacted but we are waiting on a phone call back from them for any guidance. Upon arrival to the emergency department patient really does not complain of any new complaints. She does complain of some chronic generalized weakness that she has had since her surgery. She also relates that her legs sometimes "give out". She gives a very different story than her . She relates that she can barely ambulate around the house because she is so weak in her legs give out. Although her states that she is markedly improved with her strength. She is able to ambulate around the house up and down the steps which she was initially not able to do when she got home. She denies any headache visual acuity. No weakness dizziness lightheadedness. No paresthesias. No palpitations or syncope. No chest pain shortness of breath or difficulty breathing. No back pain jaw arm or neck pain. No abdominal pain nausea or vomiting. No hematuria dysuria or urinary freque ncy. No black or tarry stools. She relates that she has been taking her blood pressure medication as prescribed but continues to keep going up. She is unable to take lisinopril as she had angioedema following the initiation of lisinopril a couple of months ago. She denies any alcohol usage or smoking history. No COVID exposure no COVID symptoms. Bilateral Leg Pain Score (Numeric/FACES): 5 Headache Pain Score (Numeric/FACES): 2 - Related Data Allergies Allergy/AdvReac Type Severity Reaction Status Date / Time lisinopril Allergy Severe Facial Verified 06/16/20 15:34 Swelling Home Meds: Home Meds Aspirin [Halfprin] 81 mg PO DAILY 02/04/14 [History] Levothyroxine 137 mcg PO SUTUWEFRSA@0700 02/04/14 [History] Multivitamin [Multi Vitamin Daily] 1 tab PO DAILY 02/04/14 [History] atorvaSTATin [Lipitor] 20 mg PO DAILY 02/04/14 [History] Pantoprazole Sodium [Protonix] 40 mg PO DAILY 04/21/20 [History] traZODone HCl [Trazodone HCl] 50 - 100 mg PO BEDTIME 04/21/20 [History] Acetaminophen 1,000 mg PO Q6H 06/16/20 [History] Docusate Sodium/Sennosides [Senna Plus] 2 tab PO BID 06/16/20 [History] EPINEPHrine [Epipen] 0.3 mg IM ASDIRECTED PRN 06/16/20 [History] Levothyroxine Sodium [Synthroid] 125 mcg PO MOTH@0700 06/16/20 [History] Metoprolol Tartrate 100 mg PO BID 06/16/20 [History] Sucralfate 1 gm PO TID 06/16/20 [History] amLODIPine Besylate [Amlodipine Besylate] 10 mg PO DAILY 06/16/20 [History] oxyCODONE 10 mg PO Q6H PRN 06/16/20 [History] Past Medical History HEENT History: Reports: Hard of Hearing Cardiovascular History: Reports: High Cholesterol Gastrointestinal History: Reports: GERD SAP PP CONSULTANT History: Reports: Neurological History: Reports: Other (See Below) Other Neuro History: Insomnia Endocrine/Metabolic History: Reports: Hypothyroidism - Past Surgical History Female Surgical History: Reports: Section, Hysterectomy Social & Family History - Family History Family Medical History: Unobtainable - Caffeine Use Caffeine Use: Reports: None ED ROS GENERAL - Review of Systems Review Of Systems: Comprehensive ROS is negative, except as noted in HPI. ED EXAM, GENERAL - Physical Exam Exam: See Below Exam Limited By: No Limitations General Appearance: Alert, WD/WN, No Apparent Distress Eye Exam: Bilateral Eye: EOMI Ears: Normal External Exam Nose: Normal Inspection, Normal Mucosa Throat/Mouth: Normal Inspection, Normal Lips Head: Atraumatic, Normocephalic Neck: Normal Inspection, Supple, Non-Tender, Full Range of Motion. No: Carotid Bruit Respiratory/Chest: No Respiratory Distress, Lungs Clear, Normal Breath Sounds, No Accessory Muscle Use, Chest Non-Tender Cardiovascular: Normal Peripheral Pulses, Regular Rate, Rhythm, Systolic Murmur (2/5 best heard over the left anterior chest. She has a well-healed midsternal incision.) Peripheral Pulses: 3+: Radial (L), Radial (R), Femoral (L), Femoral (R) GI/Abdominal: Normal Bowel Sounds, Soft, Non-Tender, No Distention, No Abnormal Bruit, No Mass, Pelvis Stable (Female) Exam: Deferred Rectal (Female) Exam: Deferred Back Exam: Normal Inspection, Full Range of Motion Extremities: Normal Inspection, Normal Range of Motion, Non-Tender, No Pedal Edema, Normal Capillary Refill Neurological: Alert, Oriented, CN II-XII Intact, Normal Cognition, Normal Gait, No Motor/Sensory Deficits, Abnormal Reflexes Psychiatric: Normal Affect Skin Exam: Dry, Intact, Normal Color, No Rash, Cool Lymphatic: No Adenopathy #1 Interpretation EKG Date: 07/14/20 Time: 11:55 Rhythm: NSR Rate (Beats/Min): 81 [place]: Normal P-Wave: Present QRS: Normal ST-T: Normal QT: Normal Course - Vital Signs Last Recorded V/S: Last Vital Signs Temp 98.3 F 06/19/20 10:00 Pulse 84 06/19/20 10:00 Resp 15 06/19/20 10:00 BP 152/62 H 06/19/20 10:00 Pulse Ox 92 L 06/19/20 10:00 - Orders/Labs/Meds Labs: Laboratory Tests 06/16/20 06/16/20 06/16/20 Range/Units 12:20 12:20 12:20 WBC 10.4 H (4.0-10.0) x10^3/uL RBC 3.75 L (4.00-5.50) x10^6/uL Hgb 10.9 L (12.0-16.0) g/dL Hct 33.8 (33.0-47.0) % MCV 90.1 (78.0-93.0) fL MCH 29.1 (26.0-32.0) pg MCHC 32.2 (32.0-36.0) g/dL RDW Coeff of Cherry 14.9 (10.0-15.0) % Plt Count 437 H (130-400) x10^3/uL Neut % (Auto) 75.2 (50.0-80.0) % Lymph % (Auto) 15.9 L (25.0-50.0) % Lea % (Auto) 6.6 (2.0-11.0) % Eos % (Auto) 1.6 (0.0-4.0) % Baso % (Auto) 0.7 (0.2-1.2) % PT 11.9 (9.9-12.5) SEC INR 1.1 L (2.0-3.5) APTT 25.6 (25.6-32.8) SEC Sodium 136 (136-145) mmol/L Potassium 4.2 (3.5-5.1) mmol/L Chloride 99 (98-107) mmol/L Carbon Dioxide 28 (21-32) mmol/L Anion Gap 13.2 (5-15) mmol/L BUN 12 (7-18) mg/dL Creatinine 1.2 H (0.55-1.02) mg/dL Est Cr Clr Drug Dosing TNP Estimated GFR (MDRD) 46 Glucose 107 H (74-106) mg/dL Calcium 9.0 (8.5-10.1) mg/dL Corrected Calcium 9.88 (8.5-10.1) mg/dL Magnesium (1.8-2.4) mg/dL Total Bilirubin 0.5 (0.2-1.0) mg/dL AST 13 L (15-37) U/L ALT 15 (14-59) U/L Alkaline Phosphatase 109 (46-116) U/L Troponin I 0.017 (<=0.056) ng/mL Total Protein 7.7 (6.4-8.2) g/dL Albumin 2.9 L (3.4-5.0) g/dL Globulin 4.8 Albumin/Globulin Ratio 0.60 TSH, Ultra Sensitive 1.498 (0.358-3.74) uIU/mL Urine Color (YELLOW) Urine Appearance (CLEAR) Urine pH (5.0-8.0) Ur Specific [place] Urine Protein (NEGATIVE) mg/dL Urine Glucose (UA) (NEGATIVE) mg/dL Urine Ketones (NEGATIVE) mg/dL Urine Occult Blood (NEGATIVE) Urine Nitrite (NEGATIVE) Urine Bilirubin (NEGATIVE) Urine Urobilinogen (0.2) EU/dL Ur Leukocyte Esterase (NEGATIVE) Urine RBC (NOT SEEN) /HPF Urine WBC (NOT SEEN) /HPF Ur Squamous Epith Cells (NEGATIVE) /HPF Urine Bacteria (NEGATIVE) /HPF Urine Mucus (NEGATIVE) /LPF 06/16/20 06/16/20 Range/Units 12:20 14:30 WBC (4.0-10.0) x10^3/uL RBC (4.00-5.50) x10^6/uL Hgb (12.0-16.0) g/dL Hct (33.0-47.0) % MCV (78.0-93.0) fL MCH (26.0-32.0) pg MCHC (32.0-36.0) g/dL RDW Coeff of Cherry (10.0-15.0) % Plt Count (130-400) x10^3/uL Neut % (Auto) (50.0-80.0) % Lymph % (Auto) (25.0-50.0) % Lea % (Auto) (2.0-11.0) % Eos % (Auto) (0.0-4.0) % Baso % (Auto) (0.2-1.2) % PT (9.9-12.5) SEC INR (2.0-3.5) APTT (25.6-32.8) SEC Sodium (136-145) mmol/L Potassium (3.5-5.1) mmol/L Chloride (98-107) mmol/L Carbon Dioxide (21-32) mmol/L Anion Gap (5-15) mmol/L BUN (7-18) mg/dL Creatinine (0.55-1.02) mg/dL Est Cr Clr Drug Dosing Estimated GFR (MDRD) Glucose (74-106) mg/dL Calcium (8.5-10.1) mg/dL Corrected Calcium (8.5-10.1) mg/dL Magnesium 1.9 (1.8-2.4) mg/dL Total Bilirubin (0.2-1.0) mg/dL AST (15-37) U/L ALT (14-59) U/L Alkaline Phosphatase (46-116) U/L Troponin I (<=0.056) ng/mL Total Protein (6.4-8.2) g/dL Albumin (3.4-5.0) g/dL Globulin Albumin/Globulin Ratio TSH, Ultra Sensitive (0.358-3.74) uIU/mL Urine Color Light yellow (YELLOW) Urine Appearance Clear (CLEAR) Urine pH 7.0 (5.0-8.0) Ur Specific [place] 1.015 Urine Protein Negative (NEGATIVE) mg/dL Urine Glucose (UA) Negative (NEGATIVE) mg/dL Urine Ketones Negative (NEGATIVE) mg/dL Urine Occult Blood Trace-intact H (NEGATIVE) Urine Nitrite Negative (NEGATIVE) Urine Bilirubin Negative (NEGATIVE) Urine Urobilinogen 0.2 (0.2) EU/dL Ur Leukocyte Esterase Negative (NEGATIVE) Urine RBC 0-5 (NOT SEEN) /HPF Urine WBC 0-5 (NOT SEEN) /HPF Ur Squamous Epith Cells Few H (NEGATIVE) /HPF Urine Bacteria Not seen (NEGATIVE) /HPF Urine Mucus Not seen (NEGATIVE) /LPF Meds: Medications Discontinued Medications Generic Name Dose Route Start Last Admin Trade Name Freq PRN Reason Stop Dose Admin Acetaminophen 1,000 mg 06/16/20 14:39 06/16/20 14:43 Tylenol Extra Strength PO 06/16/20 14:40 1,000 mg ONETIME ONE Administration Acetaminophen 1,000 mg 06/16/20 21:00 06/19/20 09:21 Tylenol Extra Strength PO 1,000 mg Q6H CHRISTIANO Administration Amlodipine Besylate 10 mg 06/17/20 08:00 06/19/20 09:22 Norvasc PO 10 mg DAILY CHRISTIANO Administration Aspirin 81 mg 06/17/20 08:00 06/19/20 09:22 Halfprin PO 81 mg DAILY CHRISTIANO Administration Atorvastatin Calcium 20 mg 06/16/20 20:00 06/19/20 09:21 Lipitor PO 20 mg DAILY CHRISTIANO Administration Clonidine HCl 0.1 mg 06/18/20 20:00 06/19/20 09:20 Catapres PO 0.1 mg Q12HR CHRISTIANO Administration Cyclobenzaprine HCl 5 mg 06/16/20 17:18 06/19/20 09:21 Flexeril PO 5 mg TID PRN Administration Spasms Gabapentin 300 mg 06/17/20 12:00 06/19/20 09:21 Neurontin PO 300 mg TID CHRISTIANO Administration Hydralazine HCl 10 mg 06/16/20 13:37 06/16/20 13:40 Apresoline IVPUSH 06/16/20 13:38 10 mg ONETIME ONE Administration Hydralazine HCl 10 mg 06/16/20 13:58 06/16/20 14:00 Apresoline PO 06/16/20 13:59 10 mg NOW STA Administration Hydralazine HCl 10 mg 06/16/20 14:57 06/16/20 16:32 Apresoline IVPUSH 06/16/20 14:58 Not Given ONETIME ONE Hydralazine HCl 10 mg 06/18/20 10:45 06/19/20 02:01 Apresoline PO 10 mg Q8H CHRISTIANO Administration Hydromorphone HCl 0.5 mg 06/16/20 17:24 06/16/20 20:12 Dilaudid IV 0.5 mg Q2H PRN Administration Pain Nicardipine HCl 25 mg/ Sodium 250 mls @ 50 mls/hr 06/16/20 15:15 06/19/20 09:23 Chloride IV 12.5 mg/hr TITRATE CHRISTIANO 125 mls/hr Administration Protocol 5 MG/HR Influenza Virus Vaccine 60 mcg 06/17/20 19:10 06/18/20 08:05 Fluzone Quad Syringe IM 06/17/20 19:11 Not Given .ONCE ONE Iopamidol 100 ml 06/16/20 19:24 Isovue-300 (61%) IVPUSH 06/16/20 19:25 ONETIME ONE Iopamidol 100 ml 06/17/20 13:17 Isovue-300 (61%) IVPUSH 06/17/20 13:18 ONETIME ONE Labetalol HCl 20 mg 06/16/20 12:22 06/16/20 12:27 Normodyne IVPUSH 06/16/20 12:23 20 mg NOW ONE Administration Protocol Labetalol HCl 40 mg 06/16/20 13:04 06/16/20 13:10 Normodyne IVPUSH 06/16/20 13:05 40 mg NOW ONE Administration Protocol Levothyroxine Sodium 112 mcg 06/17/20 07:00 Levothyroxine PO ACBREAKFAST CHRISTIANO Levothyroxine Sodium 12.5 mcg 06/17/20 07:00 Levothyroxine PO ACBREAKFAST CHRISTIANO Levothyroxine Sodium 125 mcg 06/19/20 07:00 06/19/20 06:08 Levothyroxine PO 125 mcg MOTH@0700 CHRISTIANO Administration Levothyroxine Sodium 112 mcg 06/18/20 07:00 06/18/20 06:55 Levothyroxine PO 112 mcg SuTuWeFrSa@0700 CHRISTIANO Administration Levothyroxine Sodium 25 mcg 06/18/20 07:00 06/18/20 06:55 Levothyroxine PO 25 mcg [id number]@0700 CHRISTIANO Administration Lorazepam 1 mg 06/16/20 13:06 06/16/20 13:10 Ativan PO 06/16/20 13:07 1 mg ONETIME ONE Administration Metoprolol Tartrate 25 mg 06/17/20 08:00 Lopressor PO DAILY CHRISTIANO Metoprolol Tartrate 100 mg 06/17/20 08:00 06/19/20 09:22 Lopressor PO 100 mg BID CHRISTIANO Administration Oxycodone HCl 10 mg 06/16/20 17:23 06/17/20 07:19 Oxycodone PO 10 mg Q6H PRN Administration Pain Oxycodone HCl 10 mg 06/16/20 20:57 Oxycodone PO Q6H PRN Pain Oxycodone HCl 10 mg 06/17/20 10:12 06/19/20 09:18 Oxycodone PO 10 mg Q8H PRN Administration Pain Pantoprazole Sodium 40 mg 06/17/20 07:00 06/19/20 06:08 Protonix PO 40 mg ACBREAKFAST CHRISTIANO Administration Senna/Docusate Sodium 2 tab 06/17/20 08:00 06/19/20 09:18 Senna Plus PO 2 tab BID CHRISTIANO Administration Sodium Chloride 10 ml 06/16/20 12:20 06/17/20 16:11 Saline Flush FLUSH 10 ml ASDIRECTED PRN Administration Keep Vein Open Trazodone HCl 50 mg 06/16/20 20:00 06/18/20 20:17 Trazodone PO 50 mg BEDTIME CHRISTIANO Administration - Radiology Interpretation Free Text/Narrative:: X-ray per radiology shows no obvious new plain film abnormality. - Re-Assessments/Exams Free Text/Narrative Re-Assessment/Exam: Dr. Avila from Cardiothoracic surgery did return the phone call and as the patient is not symptomatic with her BP no need for further testing or workup just needs to get her BP under control. The patient initially was given 20 mg of labetalol without much improvement of her blood pressure. She was subsequently given 40 mg of labetalol with a minimal amount of improvement of her blood pressure. She was then given 10 mg of hydralazine which improved her blood pressure to about 160 systolically which is about where I would like it to reduce slowly over the next couple of hours. She was also given 10 mg of hydralazine orally to see if we can get this under control and keep it down. Laboratory evaluation shows a white blood cell count minimally elevated at 10.4, hemoglobin 10.9, platelet count normal. PT 11.9, INR 1.1, PTT 25.6. CMP is unremarkable other than mild elevation of her creatinine 1.2 with a BUN of 12, glucose of 107. Her troponin is 0.017. Her TSH is 1.498. Urinalysis negative for leukocytes nitrites. No protein or ketones. Trace of blood intact. Noninfectious appearing. She was monitored closely in the emergency department over the next couple of hours. Although her blood pressure continued to rise back up to the 180-200 systolically. She did develop a mild headache while in the emergency department and Tylenol improve this. She clearly needs closer management and inpatient stay as her blood pressure is quite high. Although she is not having any sympto ms with this it is quite concerning to control her impulse therapy with the recent repair of her ascending aortic dissection. She was started on nicardipine drip at 5 mg an hour. I called and spoke with Rufino [facility] ER COURSE findings and concerns were relayed to him. We discussed this patient at length and we will admit her here for further care management and direction from Cardiology and CV surgery in [place]. Our threshold for transfer if any changes is quite low. She is asymptomatic at this time. He accepted the patient in admission here in [place] for continued care. I discussed the findings and concerns of the hypertensive urgency with the patient as well as her . I relayed that we have been in contact with her cardiothoracic surgeon in [place] and that his recommendations are blood pressure management and no further work-up at this time. I plan to admit her into the hospital on a nicardipine drip with close observation she is in agreements with. She is understanding at any time if she feels worse or any change of the symptoms we will transfer her to a higher level of care. Her and her are comfortable with this plan and their questions were answered. Departure - Departure Time of Disposition: 15:15 Disposition: Admitted As Inpatient 65 Reason for Transfer *Q: Other Clinical Impression: Hypertensive urgency
[2020-06-16 15:05] LABS: PTT,PARTIAL THROMBOPLSTIN TIME 25.6 SEC (25.6-32.8)
[2020-06-16] MEDS: niCARdipine HCl 25 MG in Sodium Chloride 0.9% 240 ML IV SCH ×2 (15:37→21:05)
[2020-06-16] MEDS ORDERED: HYDROmorphone 0.5 MG/0.5 ML Syringe IV PRN (17:24)
[2020-06-16] MEDS: oxyCODONE 5 MG Tab PO PRN (18:03)
[2020-06-16] MEDS ORDERED: Iopamidol 612 MG/ML 100 ML Bottle IVPUSH ONE (19:24)
--- NOTE | 2020-06-16 20:05 | CT ---
[id number] CT/CT Head WO IV EXAM: NONCONTRAST HEAD CT INDICATION: H/A, NAUSEA, HYPERTENSIVE URGENCY COMPARISON: None. DISCUSSION: Previous bilateral craniotomies. There is mild generalized atrophy. The cruz and white matter are normal in attenuation. No mass effect or midline shift. No acute hemorrhage or extra-axial fluid collection. No acute territorial infarct is identified. Small bilateral maxillary sinus mucosal retention cysts. The orbits and paranasal sinuses are otherwise unremarkable. IMPRESSION: 1. No acute findings. Timothy Rodrigues MD 06/16/202003 Thank you for allowing us to participate in the care of your patient.
[2020-06-16] MEDS: traZODone 50 MG Tab PO SCH (20:09)
[2020-06-16] MEDS: Cyclobenzaprine 10 MG Tab PO PRN (20:09)
[2020-06-16] MEDS: atorvaSTATin 10 MG Tab PO SCH (20:09)
[2020-06-16] MEDS: Sodium Chloride 0.9% 10 ML Syringe FLUSH PRN (20:12)
[2020-06-16] MEDS ORDERED: oxyCODONE 5 MG Tab PO PRN (20:57)
--- NOTE | 2020-06-16 20:57 | CT ---
[id number] CT/CT Abdomen W IV EXAM: CT Abdomen W IV INDICATION: NAUSEA COMPARISON: April 29, 2020. FINDINGS: The side markers are reversed relative to the comparison study and appear to likely be incorrect. A small left pleural effusion and associated left base atelectasis have decreased. A descending thoracic aortic aneurysm dissection is only partially imaged on today's study, but the dissection flap appears to extend a shorter distance on today's study ending prior to the aortic hiatus with no significant extension into the abdominal aorta or its major branches. Prior cholecystectomy. A few scattered subcentimeter hepatic hypodensities are too small to further characterize, but are similar to the prior study. A moderate hiatus hernia is is unchanged. There are scattered diverticula of the colon. Mild apparent wall thickening of the proximal descending colon and segments of the rectosigmoid colon could be from mild colitis or incomplete distention. No CT evident complication. Prior hysterectomy. The pancreas, spleen, adrenal glands, kidneys, small bowel, and the appendix are normal in appearance. No adenopathy, free air free fluid. Degenerative changes are noted in the spine. IMPRESSION: 1. Mild apparent wall thickening in segments of the descending and rectosigmoid colon may relate to mild colitis or incomplete distention. 2. A small left pleural effusion has decreased. 3. Partially characterized dissection of the descending thoracic aorta with interval resolution of extension into the abdominal aorta. Timothy Rodrigues MD 06/16/202055 Thank you for allowing us to participate in the care of your patient.
[2020-06-16] MEDS: Acetaminophen 500 MG Tab PO SCH (22:15)
[2020-06-17] MEDS: oxyCODONE 5 MG Tab PO PRN ×4 (01:18→23:22)
[2020-06-17] MEDS: niCARdipine HCl 25 MG in Sodium Chloride 0.9% 240 ML IV SCH ×3 (02:24→20:57)
--- NOTE | 2020-06-17 03:04 | HP ---
CHIEF COMPLAINT: Uncontrolled blood pressure. HISTORY OF PRESENT ILLNESS: This 60-year-old female patient was seen in the emergency room earlier this evening for elevated blood pressure. The patient had been seen at the [facility] in [place] earlier today and her blood pressure was elevated in the 180s, therefore recommendation was made for further evaluation in the emergency room. INTERVAL HISTORY: The patient had been seen in the Emergency Room at [place] on 04/21/2020 and was found to have an aortic dissection. The patient was then transferred to [facility] for further evaluation and treatment. The patient did undergo AAA repair on the same day. The patient did well postoperatively and was able to be discharged home. The patient presented again to the emergency room on 05/01/2020 and was readmitted to [place] and underwent a laparoscopic cholecystectomy for pain. The patient was discharged on 05/03/2020 in stable condition. The patient presented to the [facility] in [place] on 05/05/2020 for uncontrolled pain and evaluation of possible incision infections. The patient was placed on topical antibiotic treatment and started on pain medication and sent home. The patient was seen at [facility] for a followup with the cardiothoracic surgeon on 05/18/2020. CT scan of her chest, abdomen, pelvis revealed the takeoff of the subclavian repair showed false impingement on the true vessel. Therefore, it was thought the patient's pain was related to this impingement. The patient was then referred to the [facility] for possible endo grafting of the descending aorta and repair of the takeoff of the subclavian vein. The patient was then seen again for elevated blood pressures in the [place] [facility] on 06/05/2020. The patient was started on Norvasc in addition to her metoprolol. The patient's blood pressure had remained elevated. The patient was again seen in clinic on 06/13/2020 for headaches. The patient was started on Flexeril. On 06/14/2020, the patient's blood pressures continued to be elevated, therefore her Norvasc was increased to 10 mg daily in addition to metoprolol 100 mg twice daily. The patient was seen in clinic today on 06/16/2020 and was found to have elevated blood pressures in the 180s, therefore she was sent to the emergency room this afternoon for further evaluation. In the emergency room, the patient's initial blood pressures were in the 200s. The patient was given 60 mg of IV labetalol without any significant decrease in her blood pressure. The patient was then given 20 mg of IV hydralazine followed by 10 mg of p.o. hydralazine. The patient's blood pressures continued to be elevated, therefore she was started on nicardipine drip at 5 mg/hour. The patient was then admitted to the floor. PAST MEDICAL HISTORY: 1. Aortic dissection. 2. Bilateral hearing loss. 3. Family history of breast cancer in sister. 4. Family history of colon cancer. 5. First-degree hemorrhoids. 6. Gastroesophageal reflux disease. 7. History of colon polyps. 8. Insomnia. 9. Primary hypothyroidism. 10.Pure hypercholesterolemia. PAST SURGICAL HISTORY: 1. x3. 2. Colonoscopy. 3. Right craniotomy. 4. Left craniotomy. 5. Hysterectomy. 6. Laparoscopic cholecystectomy. 7. Tubal ligation. FAMILY HISTORY: Noncontributory. SOCIAL HISTORY: The patient is a former smoker. 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 The patient is currently . LABORATORY STUDIES: 1. CBC: White blood cell count 10.4, hemoglobin 10.9, hematocrit 33.8, platelet count 437,000. 2. PT 11.9, INR 1.1. 3. CMP: Sodium 136, potassium 4.2, chloride 99, CO2 of 28, anion gap 13.2, BUN 12, creatinine 1.2, GFR 46, glucose 107, calcium 9.0, total bilirubin 0.5, AST 13, ALT 15, alkaline phosphatase 109, total protein 7.7, albumin 2.9. 4. Magnesium 1.9. 5. TSH 1.498. 6. COVID-19 negative. 7. UA is unremarkable. ALLERGIES: Lisinopril which causes angioedema. MEDICATIONS: 1. Carafate 1 g 1 tablet by mouth 3 times a day. 2. Norvasc 10 mg 1 tablet p.o. daily. 3. Metoprolol tartrate 100 mg 1 tablet p.o. twice daily. 4. Oxycodone 10 mg 1 tablet p.o. every 6 hours as needed. 5. Epinephrine 0.3 mg/0.3 mL injection as needed for allergic reaction. 6. Senokot-S 8.6 mg/50 mg 2 tablets p.o. daily. 7. Cyclobenzaprine 10 mg 1 tablet p.o. 3 times daily as needed. 8. Acetaminophen 1000 mg 3 times a day as needed. 9. Aspirin 81 mg 1 tablet p.o. daily. 10.Trazodone 50 mg 1-2 tablets p.o. at bedtime daily. 11.Levothyroxine 125 mcg 1 tablet p.o. daily. 12.Levothyroxine 137 mcg 1 tablet p.o. daily. 13.Atorvastatin 20 mg 1 tablet p.o. daily. 14.Pantoprazole 40 mg 1 tablet p.o. daily. REVIEW OF SYSTEMS: Constitutional: The patient complains of a headache, the patient complains of leg weakness, patient complains of shooting spasms down the right leg. Skin: Negative. Respiratory: Negative. Cardiovascular: Denies any chest pain or palpitations. Abdomen: Denies any abdominal pain. No nausea or vomiting. Neurological: The patient complains of a headache. Patient denies any dizziness or lightheadedness. PHYSICAL EXAMINATION: Vital Signs: Height 5 feet 10 inches, weight 163 pounds, temperature 97.6, pulse 98, blood pressure 151/76, respiratory rate 17, oxygen saturation 95% on room air. General: The patient is alert. The patient is cooperative. The patient does not appear to be in any acute distress. Respiratory: Lungs are diminished in the bases, otherwise clear. Cardiovascular: Regular rate and rhythm, no murmur. Telemetry shows normal sinus rhythm. Abdomen: Soft, nontender. Bowel sounds are hypoactive x4 . Skin: Intact, warm and dry. Neurological: The patient is alert. Patient is hard of hearing. No new focal neurological deficits. ASSESSMENT: 1. Hypertensive urgency. 2. Aortic dissection. 3. Primary hypothyroidism. 4. Pure hypercholesterolemia. 5. Primary insomnia. 6. Essential hypertension. 7. Gastroesophageal reflux disease. PLAN: A 60-year-old female patient with the above past medical history is admitted to the Acute Care Floor at [facility] for control of her blood pressure. The patient is currently on a nicardipine drip at 5 mg/hour. We will titrate the nicardipine to keep blood pressure less than 140. Goal is the systolic in the 110s over the 70s. We will check a CT scan of the patient's head given worsening headaches in the setting of uncontrolled blood pressure and history of craniotomy. The patient will also have a CT scan of the abdomen and pelvis to evaluate for any etiology of bilateral leg weakness. We will hold Norvasc and metoprolol while the patient is on the nicardipine. We will transition patient over to p.o. medications tomorrow morning. We will recheck laboratory work tomorrow morning. DVT prophylaxis with early ambulation. The patient is a full code. The patient does wish to be transferred to higher level of care should the need arise. We will continue home medications without any changes. Anticipate the patient to be admitted for the next 3-4 days while blood pressure is being controlled. The patient's , who was at bedside was updated with the plan of care and agrees. TB: 06/16/2020 22:46:19 MODL: 06/17/2020 02:56:19 /[id number]
[2020-06-17] MEDS: Acetaminophen 500 MG Tab PO SCH ×5 (05:24→20:19)
[2020-06-17] MEDS ORDERED: Levothyroxine 25 MCG Tab PO SCH (07:00)
[2020-06-17] MEDS ORDERED: Levothyroxine 112 MCG Tab PO SCH (07:00)
[2020-06-17] MEDS: Pantoprazole 40 MG Tab.CR PO SCH (07:19)
[2020-06-17] MEDS: Aspirin 81 MG Tab.EC PO SCH (07:23)
[2020-06-17] MEDS: atorvaSTATin 10 MG Tab PO SCH (07:24)
[2020-06-17] MEDS: Cyclobenzaprine 10 MG Tab PO PRN ×3 (07:24→23:22)
[2020-06-17] MEDS ORDERED: Metoprolol Tartrate 25 MG Tab PO SCH (08:00)
[2020-06-17] MEDS: Metoprolol Tartrate 50 MG Tab PO SCH ×2 (08:18→20:18)
[2020-06-17] MEDS: amLODIPine 10 MG Tab PO SCH (08:21)
[2020-06-17 08:36] LABS: ANION GAP 13.5 mmol/L (5-15)
[2020-06-17] MEDS: Gabapentin 300 MG Cap PO SCH ×2 (11:50→20:19)
[2020-06-17] MEDS: Iopamidol 612 MG/ML 100 ML Bottle IVPUSH ONE (13:17)
--- NOTE | 2020-06-17 13:44 | CT ---
[id number] CT/CTA Chest EXAM: CT ANGIOGRAM CHEST INDICATION: CHEST PAIN; TRIPLE A. COMPARISON: April 29, 2020. DISCUSSION: Changes of type A thoracic aortic dissection repair as previously described. At the level of the distal arch and extending into the proximal segment of the descending thoracic aorta the combined caliber of the true and false lumens has significantly increased with the aorta measuring up to 53 mm in diameter relative to the previous of 43 mm. The increased caliber relates to expansion of the false lumen with associated narrowing of the proximal descending thoracic aorta true lumen. At its narrowest the true lumen in the proximal descending thoracic aorta is 4 mm relative to the previous of 11 mm. The aortic caliber and dissection extent have decreased at the root and in the distal descending segment where abdominal aortic involvement has essentially resolved. There is partially characterized extension of the dissection flap into the right brachiocephalic and both common carotid arteries with significant narrowing of the true lumen in the proximal segment of both common carotid arteries that is similar to the prior study. There is only trace pericardial fluid which has mildly decreased. No involvement is seen in the left subclavian or either vertebral arteries. Negative for pulmonary embolism. A small left pleural effusion has mildly decreased. There is associated partial atelectasis of the left lower lobe. No acute infiltrates. No right-sided effusion. No thoracic adenopathy. No acute effusions. Stable moderate hiatus hernia. IMPRESSION: 1. Type A dissection of a thoracic aortic aneurysm post repair. Interval increased diameter of the aortic aneurysm at the level of the distal arch and in the proximal descending segment which measures up to 53 mm relative to the previous of 43 mm. This expansion is due to enlargement of the false lumen which also compresses the true lumen to a greater extent than on the prior study. Involvement of the right subclavian and both common carotid arteries has minimally changed. Timothy Rodrigues MD 06/17/20 [id number] Thank you for allowing us to participate in the care of your patient.
[2020-06-17] MEDS: Sodium Chloride 0.9% 10 ML Syringe FLUSH PRN (16:11)
[2020-06-17] MEDS ORDERED: FLU VACC QS2020-21(6MOS UP)/PF 60 MCG/0.5 ML SYRINGE IM ONE (19:10)
[2020-06-17] MEDS: traZODone 50 MG Tab PO SCH (20:19)
[2020-06-18] MEDS: Acetaminophen 500 MG Tab PO SCH ×4 (02:24→20:18)
[2020-06-18] MEDS: niCARdipine HCl 25 MG in Sodium Chloride 0.9% 240 ML IV SCH ×4 (02:54→19:09)
--- NOTE | 2020-06-18 04:56 | PN ---
Progress Note for ED [facility] Date: 06/17/2020 Room #: VM.216 CHIEF COMPLAINT: High blood pressure. SUBJECTIVE: Hospital day #2 for a 60-year-old female patient who was admitted yesterday to the acute care floor at [facility] for hypertensive urgency. The patient was started on a nicardipine drip and was titrated to keep her blood pressure less than 140. The patient was able to achieve consistent blood pressures in the 130s, therefore the nicardipine drip was stopped this morning and the patient was started on her regular p.o. blood pressure medications. However, the patient's blood pressure continued to rise into the 150s throughout the morning. The patient has continued having intermittent chest pain. The patient complains of unilateral lower extremity leg weakness, right greater than left. The patient's headache from yesterday has essentially resolved. The patient has not had any dizziness or lightheadedness. The patient was able to ambulate to the restroom, however, her legs became weak upon return to her room. The patient has not had any shortness of breath or cough. The patient denies any palpitations. She has not noticed any leg swelling. The patient has not had any fevers or chills. The patient did have a CT of the abdomen last evening due to her leg weakness and pain. The CT showed mild apparent wall thickening and segments of the descending and rectosigmoid colon, which may relate to a mild colitis or incomplete distention. The CT also showed a small left pleural effusion that has decreased in size. Partially characterized dissection of the descending thoracic aorta with interval resolution of the extension into the abdominal aorta was also seen. PHYSICAL EXAMINATION: Vital Signs: Weight 165.6, temperature 98.2, pulse 85, blood pressure 131/63, respiratory rate 15, oxygen saturation 95% on room air. Skin: Intact, warm, and dry. Respiratory: Lungs are clear to auscultation. Cardiovascular: Regular rate and rhythm. No murmur. Neurological: The patient is alert. The patient is oriented to person, place, and time. No focal neurological deficits. Extremities: No pedal edema. The patient has tenderness of the right groin. Pulses are intact. General: The patient is alert. The patient is cooperative. The patient does not appear to be in any acute distress. LABORATORY STUDIES: 1. CBC: White blood cell count 6.9, hemoglobin 9.2, hematocrit 28.8, platelets of 369,000. 2. BMP: Sodium 137, potassium 3.5, chloride 101, CO2 of 26, anion gap 13.5, BUN 11, creatinine 1.0, GFR 56, glucose 108, calcium 8.5. 3. Iron panel: Iron total 28, TIBC 192, percent saturation 14.6. 4. Ferritin 161. 5. LDH 216. 6. Creatine kinase 18. 7. C-reactive protein 2.8. 8. Sed rate 54. IMAGING STUDIES: CTA of chest reveals type A dissection of the thoracic aortic aneurysm post repair. Interval increased diameter of the aortic aneurysm at the level of the distal arch and in the proximal descending segment, which measures up to 53 mm relative to the previous of 43 mm. This expansion is due to enlargement of the false lumen, which also compresses the true lumen to a greater extent than on the prior study. Involvement of the right subclavian and both common carotid arteries has minimally changed. ASSESSMENT: 1. Hypertensive urgency. 2. Aortic dissection. 3. Primary hypothyroidism. 4. Pure hypercholesterolemia. 5. Primary insomnia. 6. Essential hypertension. 7. Gastroesophageal reflux disease. PLAN: Hospital day #2 for a 60-year-old female patient admitted to the acute care floor at [facility] for the above diagnoses. Given the elevation of blood pressures throughout the morning and findings of the CTA of the chest, I did contact [facility] in [place]. I spoke with Dr. Freeman, cardiothoracic surgeon. Case was reviewed. He felt the increase in lumen size, the patient should be evaluated at the [facility]. Dr. Freeman stated he does not treat this type of condition. I [facility] at area code [phone] and I spoke with Dr. Carter, CT surgeon. She stated that the results are best handled with Vascular Surgery. I then spoke with Dr. Mohini Ortiz, vascular surgeon regarding the CTA results and persistent hypertension. Dr. Ortiz stated that no acute intervention is needed at this time, however, diligent blood pressure control is needed. Dr. Ortiz stated that it is not unusual these type of patients will need to be on at least [address] Ortiz recommended restarting the Cardene drip to keep the patient's blood pressure less than 120. Once achieved, the patient should then be transitioned over to p.o. antihypertensives. She recommended continuing with the beta-denise and adding a calcium channel denise, then going to hydralazine and clonidine if needed to keep the patient's systolic blood pressure less than 120. Dr. Ortiz states that they will move up this patient's appointment with the [facility] to either this Friday or Friday, stating the visit can be done virtually. She states it is not unusual for these patient to have chest pain for several months after their initial procedure. The patient will continue on a Cardene drip to achieve systolic blood pressure less than 120. Once achieved, she will be started on p.o. antihypertensives. We will add gabapentin 300 mg t.i.d. for the patient's leg pain. I would like to wean the patient off the oxycodone. Continue with Flexeril as needed. We will also continue other medications the same. We will continue the patient on the metoprolol and Norvasc. Recheck laboratory work tomorrow morning. The patient is a full code. The patient does wish to transfer to a higher level of care should the need arise. The patient and were updated with the plan of care and agree. TB: 06/17/2020 17:48:34 MODL: 06/18/2020 04:50:03 /[id number] APOLINAR
[2020-06-18] MEDS: Pantoprazole 40 MG Tab.CR PO SCH (06:54)
[2020-06-18] MEDS ORDERED: Levothyroxine 25 MCG Tab PO SCH (07:00)
[2020-06-18] MEDS ORDERED: Levothyroxine 112 MCG Tab PO SCH (07:00)
[2020-06-18 08:12] LABS: ANION GAP 11.5 mmol/L (5-15)
[2020-06-18] MEDS: Metoprolol Tartrate 50 MG Tab PO SCH ×2 (08:15→20:17)
[2020-06-18] MEDS: oxyCODONE 5 MG Tab PO PRN ×2 (08:15→18:26)
[2020-06-18] MEDS: amLODIPine 10 MG Tab PO SCH (08:16)
[2020-06-18] MEDS: Aspirin 81 MG Tab.EC PO SCH (08:16)
[2020-06-18] MEDS: atorvaSTATin 10 MG Tab PO SCH (08:16)
[2020-06-18] MEDS: Gabapentin 300 MG Cap PO SCH ×3 (08:16→20:17)
[2020-06-18] MEDS: Cyclobenzaprine 10 MG Tab PO PRN ×2 (08:16→13:53)
[2020-06-18] MEDS: hydrALAZINE 10 MG Tab PO SCH ×2 (11:20→18:25)
[2020-06-18] MEDS: traZODone 50 MG Tab PO SCH (20:17)
[2020-06-18] MEDS: cloNIDine 0.1 MG Tab PO SCH (20:18)
--- NOTE | 2020-06-18 21:09 | PN ---
Progress Note for ED [facility] Date: 06/18/2020 Room #: VM.216 CHIEF COMPLAINT: Uncontrolled blood pressure. SUBJECTIVE: Hospital day #3 for a 60-year-old female patient who was admitted to the acute care floor 2 days ago for uncontrolled hypertension. The patient has a history of aortic grafting on 04/21/2020. The patient was sent to the emergency room for an elevated blood pressure from the clinic. The patient states she is feeling much better today. The patient denies any headaches, dizziness, or lightheadedness. The patient denies any shortness of breath or cough. The patient does not have any chest pain or palpitations. No leg swelling. She does complain of left upper extremity swelling. The patient states she is still very weak, especially with the right leg with ambulation. The patient denies any problems with urination or bowel movements. PHYSICAL EXAMINATION: Vital Signs: Weight 164.6 pounds, temperature 97.6, pulse 70, blood pressure 114/57, respirations 14, oxygen saturation 94% on 1.5 L. Skin: Intact, warm and dry. Respiratory: Lungs are clear to auscultation with no wheezing or rhonchi. Cardiovascular: Regular rate and rhythm, no murmur. Abdomen: Soft, nontender. Bowel sounds are hypoactive x4. Extremities. CMS is intact of the right lower extremity. The patient has +2 edema of the lower left forearm and hand. Neurological: The patient is alert. The patient is oriented to person, place, and time. No focal neurological deficits. LABORATORY STUDIES: 1. CBC: White blood cell count 6.1, hemoglobin 9.0, hematocrit 28.9, platelets 308,000. 2. BMP: Sodium 137, potassium 4.5, chloride 103, CO2 of 27, anion gap 11.5, BUN 11, creatinine 1.0, GFR 56, glucose 96, calcium 8.3. 3. Magnesium 1.8. ASSESSMENT: 1. Hypertensive urgency. 2. Aortic dissection. 3. Primary hypothyroidism. 4. Pure hypercholesterolemia. 5. Primary insomnia. 6. Essential hypertension. 7. Gastroesophageal reflux disease. PLAN: Hospital day #3 for a 60-year-old female patient who was admitted to the acute care floor at [facility] for the above diagnoses. The patient will continue on the Cardene drip to keep her blood pressure less than 120. The patient is currently on amlodipine and metoprolol. I will add hydralazine 10 mg p.o. 3 times daily. We will attempt to wean the Cardene drip as long as the patient's blood pressure stays less than 120. If this is not achieved, the patient will then need to be started on clonidine. We will recheck laboratory work tomorrow morning. Continue all other medications and cares the same. TB: 06/18/2020 16:13:07 MODL: 06/18/2020 20:58:54 /[id number]
[2020-06-19] MEDS: niCARdipine HCl 25 MG in Sodium Chloride 0.9% 240 ML IV SCH ×4 (01:58→09:23)
[2020-06-19] MEDS: hydrALAZINE 10 MG Tab PO SCH (02:01)
[2020-06-19] MEDS: Acetaminophen 500 MG Tab PO SCH ×2 (02:02→09:21)
[2020-06-19] MEDS: Pantoprazole 40 MG Tab.CR PO SCH (06:08)
[2020-06-19] MEDS ORDERED: Levothyroxine 125 MCG Tab PO SCH (07:00)
[2020-06-19 07:42] LABS: ANION GAP 11.9 mmol/L (5-15)
--- NOTE | 2020-06-19 08:51 | PCM.DCSUM1 ---
Discharge Summary - Hospital Course Brief History: Mrs. Valle is a 60 yo female who was admitted for uncontrolled hypertension in the setting of an aortic dissection repair 2 months ago. - Discharge Data Discharge Date: 06/19/20 Discharge Disposition: DC/Tfer to Acute Hospital 02 Condition: Good - Referral to Home Health Primary Care Physician: Lizet Sandoval MD - Discharge Diagnosis/Problem(s) (1) Hypertensive urgency SNOMED Code(s): 857085860 ICD Code: I16.0 - HYPERTENSIVE URGENCY Status: Acute Current Visit: Yes (2) S/P aortic dissection repair SNOMED Code(s): 211258649, 895887881 ICD Code: Z98.890 - OTHER SPECIFIED POSTPROCEDURAL STATES Status: Acute Current Visit: Yes (3) Headache SNOMED Code(s): 90066667 ICD Code: R51.9 - HEADACHE, UNSPECIFIED Status: Acute Current Visit: Yes Qualifiers: Headache type: unspecified Headache chronicity pattern: acute headache Intractability: not intractable Qualified Code(s): R51.9 - Headache, unspecified (4) Hypothyroidism SNOMED Code(s): 16382265 ICD Code: E03.9 - HYPOTHYROIDISM, UNSPECIFIED Status: Chronic Current Visit: Yes Qualifiers: Hypothyroidism type: acquired Qualified Code(s): E03.9 - Hypothyroidism, unspecified (5) Hyperlipidemia SNOMED Code(s): 25624702 ICD Code: E78.5 - HYPERLIPIDEMIA, UNSPECIFIED Status: Chronic Current Visit: Yes Qualifiers: Hyperlipidemia type: unspecified Qualified Code(s): E78.5 - Hyperlipidemia, unspecified (6) GERD (gastroesophageal reflux disease) SNOMED Code(s): 079476216 ICD Code: K21.9 - GASTRO-ESOPHAGEAL REFLUX DISEASE WITHOUT ESOPHAGITIS Status: Chronic Current Visit: Yes Qualifiers: Esophagitis presence: esophagitis presence not specified Qualified Code(s): K21.9 - Gastro-esophageal reflux disease without esophagitis - Patient Summary/Data Consults: Consultations 06/16/20 16:14 Consult to Case Management/Accreditation Coordinator [CONS] Routine Hospital Course: The patient was admitted and started on a nicardipine drip. Her blood pressures did improve and were controlled. She was started on oral medications (hydralazine and clonidine) in hopes of being able to taper off the nicardipine drip. The nicardipine was stopped last evening but her blood pressure progressively increased and this had to be resumed after only 2 hours. Her blood pressure continues to fluctuate in the 120-140 range systolic despite being on max dose of metoprolol and amlodipine as well as the hydralazine, clonidine, and the nicardipine drip. She had a headache on admission that resolved and then returned as of today. She also had some chest pain and a repeat CT showed some changes in the area of her aortic dissection. The weekend wire rope fabrication supervisor provider did contact the [facility] and they had not recommended transfer but they are going to follow-up with her this week. They recommend a blood pressure target of <110 systolic. Given the amount of blood pressure medication she is on and her blood pressure still being above goal, the recommendation is to transfer to [place]. Patient and family in agreement. I spoke to hospitalist in [place] and they are agreeable to take her. She will be transferred to intermediate care. - Discharge Plan *PRESCRIPTION DRUG MONITORING PROGRAM REVIEWED*: No *COPY OF PRESCRIPTION DRUG MONITORING REPORT IN PATIENT BRYANT: No Home Medications: Home Meds Aspirin [Halfprin] 81 mg PO DAILY 02/04/14 [History] Levothyroxine 137 mcg PO SUTUWEFRSA@0700 02/04/14 [History] Multivitamin [Multi Vitamin Daily] 1 tab PO DAILY 02/04/14 [History] atorvaSTATin [Lipitor] 20 mg PO DAILY 02/04/14 [History] Pantoprazole Sodium [Protonix] 40 mg PO DAILY 04/21/20 [History] traZODone HCl [Trazodone HCl] 50 - 100 mg PO BEDTIME 04/21/20 [History] Acetaminophen 1,000 mg PO Q6H 06/16/20 [History] Docusate Sodium/Sennosides [Senna Plus] 2 tab PO BID 06/16/20 [History] EPINEPHrine [Epipen] 0.3 mg IM ASDIRECTED PRN 06/16/20 [History] Levothyroxine Sodium [Synthroid] 125 mcg PO MOTH@0700 06/16/20 [History] Metoprolol Tartrate 100 mg PO BID 06/16/20 [History] Sucralfate 1 gm PO TID 06/16/20 [History] amLODIPine Besylate [Amlodipine Besylate] 10 mg PO DAILY 06/16/20 [History] oxyCODONE 10 mg PO Q6H PRN 06/16/20 [History] Forms: ED Department Discharge Referrals: Lizet Sandoval MD [Primary Care Provider] - - Discharge Summary/Plan Comment DC Time >30 min.: Yes (40) - General Info Date of Service: 06/19/20 Subjective Update: Patient has a recurrence of her headache, which is currently rated at 2/10. No chest pain or shortness of breath. Continues to struggle with leg weakness. - Review of Systems General: Reports: No Symptoms HEENT: Reports: No Symptoms Pulmonary: Reports: No Symptoms Cardiovascular: Reports: No Symptoms Gastrointestinal: Reports: No Symptoms Genitourinary: Reports: No Symptoms Musculoskeletal: Reports: No Symptoms Skin: Reports: No Symptoms Neurological: Reports: Headache - Patient Data Vitals - Most Recent: Last Vital Signs Temp 36.6 C 06/19/20 02:00 Pulse 79 06/19/20 08:27 Resp 17 06/19/20 08:27 BP 136/58 L 06/19/20 08:27 Pulse Ox 90 L 06/19/20 04:30 Weight - Most Recent: 77.564 kg I&O - Last 24 hours: Intake & Output 06/18/20 06/19/20 06/19/20 22:59 06:59 14:59 Intake Total 1670 1010 Output Total 1200 900 Balance 470 110 Lab Results - Last 24 hrs: Laboratory Results - last 24 hr 06/19/20 06/19/20 Range/Units 06:42 06:42 WBC 5.5 (4.0-10.0) x10^3/uL RBC 3.05 L (4.00-5.50) x10^6/uL Hgb 8.9 L (12.0-16.0) g/dL Hct 28.1 L (33.0-47.0) % MCV 92.1 (78.0-93.0) fL MCH 29.2 (26.0-32.0) pg MCHC 31.7 L (32.0-36.0) g/dL RDW Coeff of Cherry 14.9 (10.0-15.0) % Plt Count 308 (130-400) x10^3/uL Neut % (Auto) 63.5 (50.0-80.0) % Lymph % (Auto) 22.4 L (25.0-50.0) % [place] % (Auto) 8.7 (2.0-11.0) % Eos % (Auto) 4.7 H (0.0-4.0) % Baso % (Auto) 0.7 (0.2-1.2) % Sodium 137 (136-145) mmol/L Potassium 3.9 (3.5-5.1) mmol/L Chloride 103 (98-107) mmol/L Carbon Dioxide 26 (21-32) mmol/L Anion Gap 11.9 (5-15) mmol/L BUN 11 (7-18) mg/dL Creatinine 1.0 (0.55-1.02) mg/dL Est Cr Clr Drug Dosing 64.96 mL/min Estimated GFR (MDRD) 56 Glucose 96 (74-106) mg/dL Calcium 8.0 L (8.5-10.1) mg/dL Corrected Calcium 9.52 (8.5-10.1) mg/dL Total Bilirubin 0.4 (0.2-1.0) mg/dL AST 8 L (15-37) U/L ALT 10 L (14-59) U/L Alkaline Phosphatase 84 (46-116) U/L Total Protein 6.0 L (6.4-8.2) g/dL Albumin 2.1 L (3.4-5.0) g/dL Globulin 3.9 Albumin/Globulin Ratio 0.54 Med Orders - Current: Current Medications Acetaminophen (Tylenol Extra Strength) 1,000 mg PO Q6H [facility] Last Admin: 06/19/20 02:02 Dose: 1,000 mg Documented by: Amlodipine Besylate (Norvasc) 10 mg PO DAILY [facility] Last Admin: 06/18/20 08:16 Dose: 10 mg Documented by: Aspirin (Halfprin) 81 mg PO DAILY [facility] Last Admin: 06/18/20 08:16 Dose: 81 mg Documented by: Atorvastatin Calcium (Lipitor) 20 mg PO DAILY [facility] Last Admin: 06/18/20 08:16 Dose: 20 mg Documented by: Clonidine HCl (Catapres) 0.1 mg PO Q12HR [facility] Last Admin: 06/18/20 20:18 Dose: 0.1 mg Documented by: Cyclobenzaprine HCl (Flexeril) 5 mg PO TID PRN PRN Reason: Spasms Last Admin: 06/18/20 13:53 Dose: 5 mg Documented by: Gabapentin (Neurontin) 300 mg PO TID [facility] Last Admin: 06/18/20 20:17 Dose: 300 mg Documented by: Hydralazine HCl (Apresoline) 10 mg PO Q8H [facility] Last Admin: 06/19/20 02:01 Dose: 10 mg Documented by: Hydromorphone HCl (Dilaudid) 0.5 mg IV Q2H PRN PRN Reason: Pain Last Admin: 06/16/20 20:12 Dose: 0.5 mg Documented by: Nicardipine HCl 25 mg/ Sodium (Chloride) 250 mls @ 50 mls/hr IV TITRATE [facility]; Protocol Last Titration: 06/19/20 08:06 Dose: 12.5 mg/hr, 125 mls/hr Documented by: Levothyroxine Sodium (Levothyroxine) 125 mcg PO MOTH@0700 [facility] Last Admin: 06/19/20 06:08 Dose: 125 mcg Documented by: Levothyroxine Sodium (Levothyroxine) 112 mcg PO SuTuWeFrSa@0700 [facility] Last Admin: 06/18/20 06:55 Dose: 112 mcg Documented by: Levothyroxine Sodium (Levothyroxine) 25 mcg PO SuTuWeFrSa@0700 [facility] Last Admin: 06/18/20 06:55 Dose: 25 mcg Documented by: Metoprolol Tartrate (Lopressor) 100 mg PO BID [facility] Last Admin: 06/18/20 20:17 Dose: 100 mg Documented by: Oxycodone HCl (Oxycodone) 10 mg PO Q8H PRN PRN Reason: Pain Last Admin: 06/18/20 18:26 Dose: 10 mg Documented by: Pantoprazole Sodium (Protonix) 40 mg PO ACBREAKFAST [facility] Last Admin: 06/19/20 06:08 Dose: 40 mg Documented by: Senna/Docusate Sodium (Senna Plus) 2 tab PO BID [facility] Last Admin: 06/18/20 20:16 Dose: 2 tab Documented by: Sodium Chloride (Saline Flush) 10 ml FLUSH ASDIRECTED PRN PRN Reason: Keep Vein Open Last Admin: 06/17/20 16:11 Dose: 10 ml Documented by: Trazodone HCl (Trazodone) 50 mg PO BEDTIME [facility] Last Admin: 06/18/20 20:17 Dose: 50 mg Documented by: Discontinued Medications Acetaminophen (Tylenol Extra Strength) 1,000 mg PO ONETIME ONE Stop: 06/16/20 14:40 Last Admin: 06/16/20 14:43 Dose: 1,000 mg Documented by: Hydralazine HCl (Apresoline) 10 mg IVPUSH ONETIME ONE Stop: 06/16/20 13:38 Last Admin: 06/16/20 13:40 Dose: 10 mg Documented by: Hydralazine HCl (Apresoline) 10 mg PO NOW STA Stop: 06/16/20 13:59 Last Admin: 06/16/20 14:00 Dose: 10 mg Documented by: Hydralazine HCl (Apresoline) 10 mg IVPUSH ONETIME ONE Stop: 06/16/20 14:58 Last Admin: 06/16/20 16:32 Dose: Not Given Documented by: Influenza Virus Vaccine (Fluzone Quad Syringe) 60 mcg IM .ONCE ONE Stop: 06/17/20 19:11 Last Admin: 06/18/20 08:05 Dose: Not Given Documented by: Iopamidol (Isovue-300 (61%)) 100 ml IVPUSH ONETIME ONE Stop: 06/16/20 19:25 Iopamidol (Isovue-300 (61%)) 100 ml IVPUSH ONETIME ONE Stop: 06/17/20 13:18 Labetalol HCl (Normodyne) 20 mg IVPUSH NOW ONE; Protocol Stop: 06/16/20 12:23 Last Admin: 06/16/20 12:27 Dose: 20 mg Documented by: Labetalol HCl (Normodyne) 40 mg IVPUSH NOW ONE; Protocol Stop: 06/16/20 13:05 Last Admin: 06/16/20 13:10 Dose: 40 mg Documented by: Levothyroxine Sodium (Levothyroxine) 112 mcg PO ACBREAKFAST [facility] Levothyroxine Sodium (Levothyroxine) 12.5 mcg PO ACBREAKFAST [facility] Lorazepam (Ativan) 1 mg PO ONETIME ONE Stop: 06/16/20 13:07 Last Admin: 06/16/20 13:10 Dose: 1 mg Documented by: Metoprolol Tartrate (Lopressor) 25 mg PO DAILY [facility] Oxycodone HCl (Oxycodone) 10 mg PO Q6H PRN PRN Reason: Pain Last Admin: 06/17/20 07:19 Dose: 10 mg Documented by: Oxycodone HCl (Oxycodone) 10 mg PO Q6H PRN PRN Reason: Pain - Exam General: Reports: Alert, Oriented, Cooperative, No Acute Distress HEENT: Reports: Mucous Membr. Moist/[place] Neck: Reports: Supple, Trachea Midline, No Thyromegaly. Denies: Lymphadenopathy Lungs: Reports: Clear to Auscultation, Normal Respiratory Effort Cardiovascular: Reports: Regular Rate, Regular Rhythm, Murmurs GI/Abdominal Exam: Normal Bowel Sounds, Soft, Non-Tender, No Organomegaly, No Distention, No Mass Extremities: Non-Tender, No Pedal Edema, Normal Capillary Refill Skin: Reports: Warm, Dry, Intact Neurological: Reports: No New Focal Deficit
[2020-06-19] MEDS: oxyCODONE 5 MG Tab PO PRN (09:18)
[2020-06-19] MEDS: cloNIDine 0.1 MG Tab PO SCH (09:20)
[2020-06-19] MEDS: atorvaSTATin 10 MG Tab PO SCH (09:21)
[2020-06-19] MEDS: Cyclobenzaprine 10 MG Tab PO PRN (09:21)
[2020-06-19] MEDS: Gabapentin 300 MG Cap PO SCH (09:21)
[2020-06-19] MEDS: Metoprolol Tartrate 50 MG Tab PO SCH (09:22)
[2020-06-19] MEDS: amLODIPine 10 MG Tab PO SCH (09:22)
[2020-06-19] MEDS: Aspirin 81 MG Tab.EC PO SCH (09:22)
== END 2020-06-19 10:40 | disposition short-term general hospital (02) | DRG 199 ==
LOC: SUPCPDRO 11:57 → VM.ED 11:57 → VM.MS 15:09
PROVIDERS: ADMIT Nurse Practitioner Family; ATTEND Family Medicine
DX: I16.0 Hypertensive urgency (principal); R51.9 Headache, unspecified; E03.9 Hypothyroidism, unspecified; E78.5 Hyperlipidemia, unspecified; K21.9 Gastro-esophageal reflux disease without esophagitis; R07.9 Chest pain, unspecified; H91.93 Unspecified hearing loss, bilateral; G47.00 Insomnia, unspecified; E78.00 Pure hypercholesterolemia, unspecified; Z79.82 Long term (current) use of aspirin; Z98.890 Other specified postprocedural states; Z86.010 Personal history of colon polyps; Z79.899 Other long term (current) drug therapy; Z79.890 Hormone replacement therapy; Z90.49 Acquired absence of other specified parts of digestive tract; Z90.710 Acquired absence of both cervix and uterus; Z98.51 Tubal ligation status; Z20.822 Contact with and (suspected) exposure to COVID-19
CPT/HCPCS: 36415; 70450; 71045; 71275; 74160; 80048; 80053; 81001; 82085; 82140; 82306; 82550; 82607; 82728; 83540; 83550; 83615; 83735; 84155; 84165; 84443; 84484; 85025; 85610; 85652; 85730; 86038; 86140; 93005; 93010; 99284; A9270-GY; J0360; J1170; J3490; J7050; Q9967; U0002

== ENCOUNTER 2021-06-12 15:58 | Inpatient (IN) | payer BC ==
[2021-06-12 16:47] LABS: CHLORIDE,CL 101 mmol/L (98-107); SODIUM,NA 134 mmol/L (136-145)
[2021-06-12 16:58] LABS: ANION GAP 10.3 mmol/L (5-15)
[2021-06-12] MEDS ORDERED: Sodium Chloride 0.9% 10 ML Syringe FLUSH PRN (18:25)
[2021-06-12] MEDS ORDERED: Magnesium Hydroxide 400 MG/5 ML Susp 30 ML Cup PO PRN (18:25)
[2021-06-12] MEDS ORDERED: cefTRIAXone 2 GM Vial IVPUSH ONE (19:20)
[2021-06-12] MEDS ORDERED: Furosemide 20 MG/2 ML VIAL IV ONE ×2 (19:24→22:13)
[2021-06-12] MEDS ORDERED: NS + KCl 20mEq/L 1,000 ML IV SCH (19:30)
[2021-06-12] MEDS ORDERED: Sodium Chloride 0.9% 250 ML IV SCH ×2 (19:30→19:45)
[2021-06-12] MEDS: Pantoprazole 40 MG Vial IVPUSH SCH (20:35)
[2021-06-12] MEDS: Morphine 2 MG/ML SYRINGE IVPUSH PRN (20:45)
[2021-06-12] MEDS ORDERED: Non-Formulary Medication 1 Each (Docusate Sodium [Enemeez] 283 MG/5 ML Enema) RC PRN (23:13)
[2021-06-12] MEDS ORDERED: Acetaminophen 325 MG Tab PO PRN (23:13)
[2021-06-12] MEDS ORDERED: Acetaminophen/HYDROcodone 325-5 MG Tab PO PRN (23:13)
[2021-06-13] MEDS: Morphine 2 MG/ML SYRINGE IVPUSH PRN ×4 (01:04→11:51)
[2021-06-13 06:40] LABS: CHLORIDE,CL 103 mmol/L (98-107); SODIUM,NA 135 mmol/L (136-145)
[2021-06-13] MEDS ORDERED: Levothyroxine 112 MCG Tab PO SCH (07:00)
[2021-06-13] MEDS ORDERED: Levothyroxine 25 MCG Tab PO SCH (07:00)
[2021-06-13] MEDS ORDERED: EPINEPHrine 1 MG/1 ML Amp IM PRN (07:01)
[2021-06-13 07:07] LABS: ANION GAP 7.5 mmol/L (5-15)
[2021-06-13] MEDS ORDERED: atorvaSTATin 10 MG Tab PO SCH (08:00)
[2021-06-13] MEDS ORDERED: Trospium 20 MG Tab PO SCH (08:00)
[2021-06-13] MEDS ORDERED: Nortriptyline 25 MG Cap PO SCH (08:00)
[2021-06-13] MEDS ORDERED: DULoxetine 60 MG Cap PO SCH (08:00)
[2021-06-13] MEDS ORDERED: Amiodarone 200 MG Tab PO SCH (08:00)
[2021-06-13] MEDS ORDERED: Carvedilol 3.125 MG Tab PO SCH (08:00)
[2021-06-13] MEDS ORDERED: Sucralfate 1 GM Tab PO SCH (08:00)
[2021-06-13] MEDS: Gabapentin 300 MG Cap PO SCH ×2 (08:04→11:51)
[2021-06-13] MEDS: Polyethylene Glycol 3350 Powder 17 GM Packet PO SCH ×2 (08:06→08:21)
[2021-06-13] MEDS: Pantoprazole 40 MG Vial IVPUSH SCH (08:20)
[2021-06-14] MEDS ORDERED: Levothyroxine 125 MCG Tab PO SCH (07:00)
== END 2021-06-13 12:00 | disposition short-term general hospital (02) | DRG 663 ==
LOC: VM.ED 15:58 → VM.MS 17:38
PROVIDERS: ADMIT Family Medicine; ATTEND Family Medicine
PROC: 30233P1 Transfusion of Nonautologous Frozen Red Cells into Peripheral Vein, Percutaneous Approach (ICD-10-PCS; principal; 2021-06-12)
DX: D64.9 Anemia, unspecified (principal); K59.2 Neurogenic bowel, not elsewhere classified; I71.2 Thoracic aortic aneurysm, without rupture; I50.32 Chronic diastolic (congestive) heart failure; K21.9 Gastro-esophageal reflux disease without esophagitis; E03.9 Hypothyroidism, unspecified; N31.9 Neuromuscular dysfunction of bladder, unspecified; G82.20 Paraplegia, unspecified; K59.09 Other constipation; H91.93 Unspecified hearing loss, bilateral; F43.22 Adjustment disorder with anxiety; I48.0 Paroxysmal atrial fibrillation; E78.5 Hyperlipidemia, unspecified; E46 Unspecified protein-calorie malnutrition; E87.6 Hypokalemia; E87.1 Hypo-osmolality and hyponatremia; K25.9 Gastric ulcer, unspecified as acute or chronic, without hemorrhage or perforation; Z79.82 Long term (current) use of aspirin; Z79.899 Other long term (current) drug therapy; Z79.01 Long term (current) use of anticoagulants; Z88.8 Allergy status to other drugs, medicaments and biological substances; Z86.16 Personal history of COVID-19; Z90.49 Acquired absence of other specified parts of digestive tract; Z98.51 Tubal ligation status
CPT/HCPCS: 36415; 36430; 51702; 70450; 71045; 74019; 80053; 81001; 82140; 82550; 82728; 83540; 83550; 83615; 83735; 83880; 84145; 84443; 84484; 85025; 86140; 86850; 86900; 86901; 86920; 86922; 87086; 87088; 87186; 93010; 99284; 99285-25; A9270-GY; C9113; J0696; J1940; J2270; J3480; P9016; U0002

== ENCOUNTER 2021-08-03 09:09 | Day surgery (SDC) | payer BC ==
[~2021-08-03 09:09] MED LIST changes: +Lactated Ringers 1,000 ML IV SCH; -Sodium Chloride 0.9% 10 ML Syringe FLUSH PRN
[2021-08-03] MEDS ORDERED: fentaNYL 100 MCG/2 ML SDV ONE (10:15)
[2021-08-03] MEDS ORDERED: Propofol 200 MG/20 ML SDV ONE ×3 (10:15→10:59)
== END 2021-08-03 12:20 | disposition home or self-care (01) ==
LOC: VM.SDS 09:09
PROVIDERS: ATTEND Student in an Organized Health Care Education/Training Program
DX: D64.9 Anemia, unspecified (principal); K44.9 Diaphragmatic hernia without obstruction or gangrene; I48.91 Unspecified atrial fibrillation; I11.0 Hypertensive heart disease with heart failure; I50.9 Heart failure, unspecified; E03.9 Hypothyroidism, unspecified; N17.9 Acute kidney failure, unspecified; K21.9 Gastro-esophageal reflux disease without esophagitis; Z98.890 Other specified postprocedural states; Z87.891 Personal history of nicotine dependence; Z79.899 Other long term (current) drug therapy; Z88.8 Allergy status to other drugs, medicaments and biological substances
CPT/HCPCS: 00811; 36415; 85027; J2704; J3010; J7120

== ENCOUNTER 2023-07-10 12:52 | Emergency (ER) | payer MEDICARE, OTHER ==
[2023-07-10 13:09] LABS: BASOPHILS ABSOLUTE AUTO 0.1 x10^3/uL (0.0-0.2); BASOPHILS PERCENT AUTO 1.1 % (0.2-1.2); EOSINOPHILS ABSOLUTE AUTO 0.2 x10^3/uL (0.0-0.5); EOSINOPHILS PERCENT AUTO 3.9 % (0.0-4.0); HEMATOCRIT 31.1 % (33.0-47.0); HEMOGLOBIN 9.3 g/dL (12.0-16.0); IMMATURE GRAN ABSOLUTE AUTO 0.01 x10^3/uL (0.00-0.07); LYMPHOCYTES ABSOLUTE AUTO 0.7 x10^3/uL (1.0-4.8); LYMPHOCYTES PERCENT AUTO 13.6 % (25.0-50.0); MEAN CORPUSCULAR HEMOGLOBIN 25.5 pg (26.0-32.0); MEAN CORPUSCULAR HGB CONC 29.9 g/dL (32.0-36.0); MEAN CORPUSCULAR VOLUME 85.2 fL (78.0-93.0); MONOCYTES ABSOLUTE AUTO 0.3 x10^3/uL (0.0-0.8); MONOCYTES PERCENT AUTO 6.1 % (2.0-11.0); NEUTROPHILS ABSOLUTE AUTO 4.1 x10^3/uL (1.8-7.7); NEUTROPHILS PERCENT AUTO 75.1 % (50.0-80.0); PLATELET COUNT,PLT 353 x10^3/uL (130-400); RED BLOOD CELL COUNT 3.65 x10^6/uL (4.00-5.50); WHITE BLOOD CELL COUNT,WBC 5.5 x10^3/uL (4.0-10.0)
[2023-07-10 13:31] LABS: A/G RATIO 0.85; ALANINE AMINOTRANSFERASE,ALT 40 U/L (14-59); ALBUMIN 3.3 g/dL (3.4-5.0); ALKALINE PHOSPHATASE 130 U/L (46-116); ASPARTATE AMNIOTRANSFERASE,AST 24 U/L (15-37); BILIRUBIN TOTAL 0.5 mg/dL (0.2-1.0); BLOOD UREA NITROGEN,BUN 12 mg/dL (7-18); CALCIUM 8.9 mg/dL (8.5-10.1); CARBON DIOXIDE,CO2 32 mmol/L (21-32); CHLORIDE,CL 100 mmol/L (98-107); CREATININE 0.5 mg/dL (0.55-1.02); GLUCOSE RANDOM 100 mg/dL (70-99); POTASSIUM,K 3.8 mmol/L (3.5-5.1); PROTEIN TOTAL,TP 7.2 g/dL (6.4-8.2); SODIUM,NA 141 mmol/L (136-145)
[2023-07-10 13:32] LABS: ANION GAP 12.8 mmol/L (5-15); ESTIMATED GFR 105 mL/min (>=60)
== END 2023-07-10 13:53 | disposition home or self-care (01) ==
LOC: VM.ED 12:52
DX: R00.2 Palpitations (principal); I11.0 Hypertensive heart disease with heart failure; I50.9 Heart failure, unspecified; K21.9 Gastro-esophageal reflux disease without esophagitis; E78.00 Pure hypercholesterolemia, unspecified; E03.9 Hypothyroidism, unspecified; Z88.8 Allergy status to other drugs, medicaments and biological substances; Z79.82 Long term (current) use of aspirin; Z90.49 Acquired absence of other specified parts of digestive tract; Z90.710 Acquired absence of both cervix and uterus
CPT/HCPCS: 36415; 80053; 84484; 85025; 93005; 99285

== ENCOUNTER 2024-11-02 17:01 | Emergency (ER) | payer MEDICARE, BC ==
[2024-11-02 18:18] LABS: APPEARANCE,URINE CLOUDY (CLEAR); GLUCOSE,URINE NEGATIVE (NEGATIVE); OCCULT BLOOD,URINE LARGE (NEGATIVE)
[2024-11-02 18:23] LABS: SQUAMOUS EPITHELIAL CELLS,UR NOT SEEN /HPF (NOT SEEN)
== END 2024-11-02 18:40 | disposition home or self-care (01) ==
LOC: VM.ED 17:01
DX: N39.0 Urinary tract infection, site not specified (principal); K21.9 Gastro-esophageal reflux disease without esophagitis; I11.0 Hypertensive heart disease with heart failure; I50.9 Heart failure, unspecified; E78.00 Pure hypercholesterolemia, unspecified; E03.9 Hypothyroidism, unspecified; Z88.8 Allergy status to other drugs, medicaments and biological substances; Z79.890 Hormone replacement therapy; Z79.82 Long term (current) use of aspirin; Z90.710 Acquired absence of both cervix and uterus; Z90.49 Acquired absence of other specified parts of digestive tract
CPT/HCPCS: 51705; 81001; 87086; 87088; 99283; 99284; A9270-GY

== ENCOUNTER 2025-01-12 18:22 | Emergency (ER) | payer MEDICARE, BC ==
[2025-01-12] MEDS: fentaNYL 50 MCG/ML SDV IVPUSH ONE (19:01)
[2025-01-12] MEDS: Take Home: Acetaminophen/Codeine 300 MG/30 MG, 5 Tab Pack PO ONE (20:50)
== END 2025-01-12 21:01 | disposition home or self-care (01) ==
LOC: VM.ED 18:22
DX: S82.142A Displaced bicondylar fracture of left tibia, initial encounter for closed fracture (principal); I11.0 Hypertensive heart disease with heart failure; I50.9 Heart failure, unspecified; K21.9 Gastro-esophageal reflux disease without esophagitis; E78.00 Pure hypercholesterolemia, unspecified; E03.9 Hypothyroidism, unspecified; Z88.8 Allergy status to other drugs, medicaments and biological substances; Z79.82 Long term (current) use of aspirin; Z79.890 Hormone replacement therapy; Z79.899 Other long term (current) drug therapy; Z90.49 Acquired absence of other specified parts of digestive tract; Z90.710 Acquired absence of both cervix and uterus; W05.0XXA Fall from non-moving wheelchair, initial encounter
CPT/HCPCS: 29515; 71250; 73600-LT; 74176; 96374; 99283; 99284-25; A9270-GY; J3010

== ENCOUNTER 2025-01-13 17:49 | Emergency (ER) | payer MEDICARE, BC ==
[2025-01-13] MEDS: fentaNYL 50 MCG/ML SDV IVPUSH ONE (18:48)
[2025-01-13] MEDS: Iopamidol 612 MG/ML 100 ML Bottle IVPUSH ONE (18:54)
== END 2025-01-13 19:53 | disposition home or self-care (01) ==
LOC: VM.ED 17:49
DX: I13.0 Hypertensive heart and chronic kidney disease with heart failure and stage 1 through stage 4 chronic kidney disease, or unspecified chronic kidney disease (principal); I50.9 Heart failure, unspecified; D63.1 Anemia in chronic kidney disease; M54.6 Pain in thoracic spine; I48.91 Unspecified atrial fibrillation; E03.9 Hypothyroidism, unspecified; E78.00 Pure hypercholesterolemia, unspecified; K21.9 Gastro-esophageal reflux disease without esophagitis; N18.9 Chronic kidney disease, unspecified; Z79.899 Other long term (current) drug therapy; Z79.890 Hormone replacement therapy; Z79.01 Long term (current) use of anticoagulants; Z79.82 Long term (current) use of aspirin; Z88.8 Allergy status to other drugs, medicaments and biological substances; Z90.49 Acquired absence of other specified parts of digestive tract; Z90.710 Acquired absence of both cervix and uterus; W19.XXXD Unspecified fall, subsequent encounter
CPT/HCPCS: 71260; 74177; 96374; 99283; 99283-25; J3010; Q9967

== ENCOUNTER 2025-02-03 07:18 | Emergency (ER) | payer MEDICARE, BC | END 2025-02-03 08:09 | disposition home or self-care (01) | LOC: VM.ED 07:18 | DX: T83.010A Breakdown (mechanical) of cystostomy catheter, initial encounter (principal); N31.9 Neuromuscular dysfunction of bladder, unspecified; I11.0 Hypertensive heart disease with heart failure; I50.9 Heart failure, unspecified; E03.9 Hypothyroidism, unspecified; Z79.82 Long term (current) use of aspirin; Z79.890 Hormone replacement therapy; Z79.899 Other long term (current) drug therapy; Z90.49 Acquired absence of other specified parts of digestive tract; Z90.710 Acquired absence of both cervix and uterus | CPT/HCPCS: 51702; 99283; 99284 ==